=== PATIENT | female | born 1990 | race Caucasian/White ===

== ENCOUNTER → 2018-01-18 10:18 | Outpatient (CLI) | payer BC, SELFPAY ==
[2018-01-18 11:34] LABS: Progesterone Level 3.52 ng/mL (See Comment)
--- OUTSIDE RECORDS SUMMARY | 2018-01-18 12:01 | XMS RPT_ITS ---
:1990 Author Organization OHIP Care Team Providers Name Role Phone Zhane Rodriguez Attending Unavailable Zhane Rodriguez Primary Care Unavailable Carmelo De Leon Attending Unavailable Carmelo De Leon Attending Unavailable Zhane Rodriguez Primary Care Unavailable Alyx Wolfe Attending Unavailable PROBLEMS PROBLEMS DATE TYPE CONDITION / CODE ATTENDING STATUS SOURCE 01/18/2018 Unknown Z31.61 - Sneha Wolfe [facility] [facility] advice using Repository natural family planning / Z31.61(ICD-10) 11/13/2017 Unknown R11.2 - Nausea Carmelo De Leon Active [facility] with vomiting, Community unspecified / Hospital R11.2(ICD-10) Repository 11/13/2017 Unknown R53.83 - Other Carmelo De Leon Active [facility] fatigue / Community R53.83(ICD-10) Hospital Repository 07/01/2017 Unknown PAIN IN RIGHT Zhane Rodriguez Active [place] ANKLE AND JOINTS Community OF RIGHT FOOT / Hospital M25.571(ICD-10) Repository 07/01/2017 Unknown EFFUSION, RIGHT Zhane Rodriguez Active [facility] ANKLE / Community M25.471(ICD-10) Hospital Repository PROCEDURES PROCEDURES No Procedure Records FoundRESULTS RESULTS URGENT CARE VISIT Observed: 11/13/2017 Status: F Source: ERIC REPORT 5:37 PM [facility] REPOSITORY Now [id number] [phone] VISITDate of Service: 11/13/17MR#: [id number] Acct: [id number]: WILEY WHITMAN Rep #: [id number]: 1990 Provider: Carmelo Majano/Sex: 27/F Location: [facility] [place].NOWStatus: SignedIntakeVital Signs11/13/17 Height 5 ft 4 inIntakeVisit Reasons: Nausea/vomitingIs patient in pain?: NoAllergiesNo Known Allergies Allergy ( Unverified 11/13/17 14:43)Medicationsprenatal vitamin,calcium,eclbsyeh-yfvw-rjksv acid tablet 1 tab PO QDAY 11/13/17 [HistoryConfirmed 11/13/17]PFSHMedical HistoryNausea and vomiting (Acute)Abnormal bruising (Acute)Back pain (Acute)Diarrhea (Acute) Fatigue (Acute)Migraines (Acute)Family HistoryOther DiabetesHypertensionSocial HistorySmoking Status: Never smokeralcohol intake: current alcohol intake frequency: a few times a monthHPINausea and vomiting:Details: WILEY WHITMAN, is a 27 F who presents to the office today for complaint of nausea,vomiting and diarrhea for the past 2-3 weeks. He states that she is concerned for possiblepregnancy and is requesting a test at this time. Her last menstrual period was and she states that it was shorter than normal and that she only spotted. She statesthat this is the first time that she has had any irregularities in her cycle. She denies anybirth control or hormone use. She states that since the beginning of that menstrual cycle shehas had the nausea vomiting and diarrhea. She states that the nausea vomiting diarrhea isworse in the morning and then throughout the afternoon it dissipates. She reports that thecycle happens daily. She denies any blood in her vomit or stool. Additionally she reports a12 pound weight gain over the past 3 months and increased tiredness over this time. She deniesfever, chills, sweats. No chest pain or shortness of breath. No other associated symptoms oralleviating/aggravating factors.ROSConstConstitutional: Positive for weight change, decreased energy and fatigue;no fever(s), chills, night sweats, headache(s), weakness or abnormal sleep patternENTENT: No headache(s)RespRespiratory: No coughCardioCardiology: No chest pain at rest, fast heart rate, irregular heart rhythm, lightheadedness orpalpitationsGastroGI: Positive for abdominal pain, diarrhea, nausea/dyspepsia, vomiting and cramping;no belching, bloating, incontinent of stools, Vomiting blood/hematemesis, pain with swallowing,blood in stool or heartburnGUGenitourinary-Female: Positive for light periods, pelvic pain and abnormal periods;no difficulty urinating, painful urination, heavy periods, painful periods or painfulintercourseNeuroNeurology: No headache(s), weakness, dizziness or confusionPsychPsychiatric: No confusion, No abnormal sleep pattern, No lack of enjoyment, Positive foranxietyEndoEndocrine: Positive for fatigue;no flushing, heat intolerance, increased thirst/drinking, increased urination or coldintoleranceExamConstGeneral: cooperative, healthy appearingRespEffort AND Inspection: normal respiratory effortAuscultation: Bilateral: Clear to AuscultationCardioRate: regular rateRhythm: regular rhythmGIInspection: normal to inspectionAuscultation: normal bowel soundsPercussion: normal to percussionPalpation: soft, no guarding, nontender, not rigid, no hepatosplenomegalyGUGeneral: deferredNeuroGeneral: alert, CN's II-XI intact bilaterallyPsychAppearance: grossly normalMood: anxious moodResultsBMSPREGUROffice , Urine Negative Last Edit by Ariane Hankins on 11/13/17 14:58Assessment AND Plan1. Non- intractable vomiting with nausea, unspecified vomiting type R11.2; R11.2StatusAcutePlanPatient advised to follow-up with her PCP in 5-7 days if no better or sooner if worse. Alsoadvised to follow-up with her IMPLEMENTATION COORDINATOR for further evaluation of possible hormonal etiology andperiod irregularity. Patient advised of potential red flags and when appropriate report to theED. Patient verbalized understanding all the above.OrdersOrders:Referrals:Plan DetailOther OrdersOrders:Referrals: CodingLevel of Care CodeOff vis,new,level 4DiagnosesNon-intractable vomiting with nausea, unspecified vomiting type R11.2; R11.2Vomiting type: unspecifiedVomiting Intractability: non-kgkhpflcimr39/19/17 1737 <Electronically signed by Carmelo RIVAS>Date Carmelo De Leon PACosigner Signature: Date (if applicable)CC: Kristin Hall MD HCG TITER QUANT., Collected: 11/13/2017 Status: F Source: [place] 3:46 PM [facility] REPOSITORY TYPE CODE TESTS RESULT OUT OF RANGE REFERENCE UNITS LAB L700.8000 Normal <9 non-preg mIU/mL HCG < 1 QUANT. Performed By: #### L700.8000 ####[facility] [id number] [place], [address] LOWER EXT JOINT ONLY Observed: 06/14/2017 Status: F Source: ERIC (ROUTINE) 1:13 PM [facility] REPOSITORY [facility] [id number] [place], [place] [address]Lcwight 4dLower Ext Joint Only (Routine)MR#: [id number] Acct: [id number]: WILEY WHITMAN Rep #: [id number]: 1990 F 27 From: Jaard Horowitz MDPCP: Zhane Rodriguez Status: REG CLIStudy: Lower Ext Joint Only (Routine) Date of Exam: 06/14/17Exam# [id number] Ordering Dr: Zhane RodriguezSTUDY: MRI RIGHT ANKLE WITHOUT CONTRASTREASON FOR EXAM: Female, 27 years old. Pt rolled right ankle 1 monthago. Continued pain in joint that radiates up leg and swellingTECHNIQUE: Standardized fat and water weighted pulse sequences wereobtained in all 3 orthogonal planes.COMPARISON: None. FINDINGS:There is anterior suprapatellar soft tissue swelling Normal distal tibiaand fibula. There are bone contusions of the talus involving the lateralprocesses and neck of the talus, without fractureNormal posterior tibialis tendon. Normal flexor digitorum longus tendon.Normal flexor hallucis longus tendon. Normal peroneus longus and brevistendons. Normal tibialis anterior tendon. Normal extensor hallucis longustendon. Normal extensor digitorum longus tendons.Normal Achilles tendon and teno-osseous insertion.Normal plantar fascia. Normal plantar calcaneal tubercles. Normalintrinsic muscles of the rearfoot.Normal distal tibiofibular syndesmotic ligamentous complex. There is atear of the anterior talofibular ligament at the fibular insertion (axialT2 series 4 image 18). Normal calcaneofibular and posterior talofibularligaments Normal subtalar ligaments and sinus tarsi. Normal deltoidligamentous complexes. Normal plantar calcaneonavicular (spring) ligament.There is a small tibiotalar joint effusion. Normal talar dome. There is asmall posterior subtalar joint effusion Normal talonavicular articulation.Normal calcaneocuboid articulation. Normal navicular-cuneiformarticulations. ORDER #: [id number] MRI/Lower Ext Joint Only (Routine)IMPRESSION:Anterior talofibular ligament tear.Bone contusion of the talus without fracture.Small joint effusions..Electronically Signed:Jarad Horowitz MD, [id number] at 14:48 EDTTel , Service support , NE: Zhane Rodriguez Title I Director:Signed ALLERGIES ALLERGIES DATE TYPE / CODE NAME / CODE REACTION SEVERITY SOURCE 11/13/2017 Drug No Known Unknown [facility] Allergy/4160 Allergies/F00 Hospital 42902(SNOMED 0552149(RXNOR Repository CT) M) ENCOUNTERS ENCOUNTERS ADMIT/DISCHARGE ACCOUNT ADMITTING ENCOUNTER LOCATION SOURCE NUMBER CLASS 01/18/2018 [id number] Ambulatory [place] Eric 0 [facility] ing:WOBLAB Repository 11/13/2017 [id number] Ambulatory [place] Eric 1 [facility] ing:MTRAD Repository 11/13/2017/ [id number] Ambulatory BMSBuilding:B [place] 7 9 MS.NOW [facility] Repository 06/14/2017 [id number] Ambulatory Eric [place] 6 [facility] ing:MRI Repository PAYERS PAYERS ENCOUNTER GUARANTOR PAYER SUBSCRIBER SOURCE 01/18/2018 Rob [id number] Primary Rob ButlerDOB: [place] [address] Insurance:[facility] [id number] y Number: [facility] [address]Kog: 330 [id number] Repository [phone] () Date:6150-21-20TQ [address] [place] [address]KN: 01/18/2018 Secondary NOT GIVENUNK [place] Insurance:SELF PAY [facility] Number: Effective Repository Date:2018-01-18 11/13/2017 Wiley Bautista Primary Rob ButlerDOB: [place] [address] Insurance:[facility] [id number] y Number: [facility] [address]Pnc: 330 [id number] Repository [phone] () Date:9284-13-84JX [id number] [place] [address]MB: 11/13/2017 Secondary NOT GIVENUNK [place] Insurance:SELF PAY [facility] Number: Effective Repository Date:2017-11-13 11/13/2017 Rob DonohueDieydr7609 Primary NOT GIVENUNK [place] [address] Insurance:[address] y Number: [facility] [address]Fhj: 330 [id number] Repository [phone] () Date:3671-14-22KJ [address], [place] [address]FB: 11/13/2017 Secondary NOT GIVENUNK [place] Insurance:SELF PAY [facility] Number: Effective Repository Date:2017-11-13 06/14/2017 WILEY Bautista Primary ROB ESTRELLAB: Eric [id number] Insurance:[employer] [id number] [facility] y Number: [address] [id number] Repository [phone]: 330) Date:2558-42-75BS [phone] () [id number], [place] [address]CG:
== END ==
PROVIDERS: Visit Provider Obstetrics & Gynecology
DX: Z31.61 Procreative counseling and advice using natural family planning (principal)
CPT/HCPCS: 36415; 84144

== ENCOUNTER → 2018-05-06 11:22 | Outpatient (CLI) | payer BC, SELFPAY ==
--- NOTE | 2018-05-06 11:22 | DT_ITS ---
This patient was seen during an EMR downtime April 29, 2018 - May 06, 2018. This patient may have a combination of paper and electronic documentation or all paper documentation. All documentation is viewable within the e-chart portion of [employer] for each patient visit.
[2018-05-06 14:01] LABS: Hematocrit 38.4 % (37-47); Hemoglobin 12.9 g/dl (12.0-15.0); Mean Corp Hgb Conc 33.6 g/gl (32-36); Mean Corpuscular Hgb 30.1 pg (27.0-32.0); Mean Corpuscular Volume 89.5 fL (81-99); Mean Platelet Vol. 9.8 fl (6.2-12.0); Platelet Count 246 K/mm3 (150-450); RBC Distribution Width CV 12.1 % (11.6-14.6); RBC Distribution Width SD 38.8 fl (35.1-43.9); Red Blood Count 4.29 M/mm3 (4.2-5.4); White Blood Count 6.5 K/mm3 (4.4-11.0)
[2018-05-06 14:03] LABS: Scan Indicated on CBC? Y/N NO
[2018-05-06 14:16] LABS: hCG Titer Quant., Serum < 1 mIU/mL (<9 non-preg)
[2018-05-06 14:35] LABS: Progesterone Level 0.37 ng/mL (See Comment); Rubella IgG 23.8 IU/mL; Vitamin D,25 Hydroxy 24.4 ng/mL (29.95-100.01)
[2018-05-06 15:08] LABS: AST(SGOT) 16 U/L (15-37); Alanine Aminotransfer ALT/SGPT 24 U/L (13-56); Alkaline Phosphatase 60 U/L (45-117); Anion Gap 7 (5-15); BUN 9 mg/dL (7-18); BUN/Creat Ratio 13.4 RATIO (10-20); Bilirubin, Direct 0.09 mg/dL (0.00-0.30); Calcium,Total 8.8 mg/dL (8.5-10.1); Chloride 106 mmol/L (98-107); Creatinine, Serum 0.67 mg/dL (0.55-1.02); EST Glomerular Filtration Rate 111 mL/min (>60); Est Glom Filt Rate - Afr Amer 135 mL/min (>60); Follicle Stimulating Hormone 4.7 mIU/mL; Globulin 3.9 g/dL (2.2-4.2); Glucose 90 mg/dL (74-106); Luteinizing Hormone 5.3 mIU/mL; Phosphorus 2.6 mg/dL (2.5-4.9); Potassium 3.6 mmol/L (3.5-5.1); Prolactin 9.1 ng/mL; Protein, Total 7.9 g/dL (6.4-8.2); Sodium Level 140 mmol/L (136-145); T4 Free Direct 0.84 ng/dL (0.76-1.46); Thyroid Stim Hormone (TSH) 1.28 uIU/mL (0.358-3.74)
[2018-05-10 18:24] LABS: 17-Hydroxyprogesterone 31 ng/dL (.)
== END ==
PROVIDERS: Family Provider Nurse Practitioner; PCP Nurse Practitioner; Visit Provider Obstetrics & Gynecology Reproductive Endocrinology
DX: N91.4 Secondary oligomenorrhea (principal); Z01.83 Encounter for blood typing; Z11.59 Encounter for screening for other viral diseases; E55.9 Vitamin D deficiency, unspecified; R53.83 Other fatigue; Z11.9 Encounter for screening for infectious and parasitic diseases, unspecified
CPT/HCPCS: 36415; 80048; 80076; 82306; 82627; 82670; 83001; 83002; 83498; 84100; 84144; 84146; 84403; 84439; 84443; 84702; 85027; 86762; 86787; 86900; 82626

== ENCOUNTER → 2019-11-21 14:49 | Outpatient (CLI) | payer BC, SELFPAY ==
[2017-11-13 14:56] VITALS: BMI 26.9
[2019-11-21 15:30] LABS: hCG Titer Quant., Serum < 1 mIU/mL (1-3)
[2019-11-21 15:40] LABS: Thyroid Stim Hormone (TSH) 1.04 uIU/mL (0.358-3.74)
== END ==
PROVIDERS: Visit Provider Obstetrics & Gynecology
DX: N92.6 Irregular menstruation, unspecified (principal)
CPT/HCPCS: 36415; 84443; 84702

== ENCOUNTER → 2020-02-09 16:08 | Outpatient (CLI) | payer BC, SELFPAY | PROVIDERS: PCP Nurse Practitioner; Visit Provider Obstetrics & Gynecology | DX: N97.9 Female infertility, unspecified (principal) | CPT/HCPCS: 36415; 84144 ==

== ENCOUNTER → 2020-02-11 14:01 | Outpatient (CLI) | payer BC, SELFPAY ==
[2020-02-11 15:12] LABS: hCG Titer Quant., Serum < 1 mIU/mL (1-3)
== END ==
PROVIDERS: PCP Nurse Practitioner; Visit Provider Obstetrics & Gynecology
DX: N97.0 Female infertility associated with anovulation (principal)
CPT/HCPCS: 36415; 84702

== ENCOUNTER → 2020-05-06 13:19 | Outpatient (CLI) | payer BC, SELFPAY ==
--- NOTE | 2020-05-06 13:24 | BI_ITS ---
MAMMOGRAPHY - BILATERAL DIAGNOSTIC REASON FOR EXAM: Female, 29 years old. Left breast lump. PERTINENT HISTORY: Non-contributory. TECHNIQUE: Digital bilateral breast jamil (3D mammographic acquisition) in the CC and MLO projections. 2-D mediolateral oblique (MLO) and craniocaudad (CC) views of both breasts were obtained. CAD: Full Field Digital Mammography with Computer Added Detection was performed. COMPARISON: None. Baseline examination. FINDINGS: Breast Composition: The breasts are heterogeneously dense, which may obscure small masses. There are no dominant masses or suspicious calcifications. No other significant abnormalities are identified. BI/DIAG MAMM W/CAD, BILAT IMPRESSION: Negative diagnostic mammogram. With the patient''s history of a palpable lump at the 4:00 position of the breast, correlation with ultrasound is recommended. ASSESSMENT CATEGORY: BIRADS Category 0: Incomplete. Need additional imaging evaluation. A letter regarding these results will be sent to the patient by the facility within 30 days. Approximately 10% of breast cancers are not detected by mammography. A normal mammogram should not delay biopsy of a clinically suspicious abnormality. Electronically Signed: Rocky Doe, at 14:19 EDT , Service support ,
--- NOTE | 2020-05-06 13:24 | US_ITS ---
STUDY: ULTRASOUND BREAST - LEFT REASON FOR EXAM: Female, 29 years old. Palpable lump left breast. TECHNIQUE: Axial and longitudinal images of the LEFT breast were performed with a high resolution ultrasound transducer. # OF IMAGES: 16 COMPARISON: Comparison is made with prior mammogram done earlier today. FINDINGS: LEFT Breast: The lateral aspect of the left breast was examined by ultrasound. No sonographic abnormality is seen. US/Breast Limited Unilateral IMPRESSION: No sonographic abnormality is seen. ASSESSMENT CATEGORY: BIRADS Category 1: Negative. A letter regarding these results will be sent to the patient by the facility within 30 days. Electronically Signed: Rocky Doe, at 14:42 EDT , Service support ,
== END ==
PROVIDERS: PCP Nurse Practitioner; Referring Provider Obstetrics & Gynecology; Visit Provider Obstetrics & Gynecology
DX: N63.20 Unspecified lump in the left breast, unspecified quadrant (principal)
CPT/HCPCS: 76642; 77062; 77066; G0279

== ENCOUNTER → 2020-06-30 09:26 | Outpatient (CLI) | payer BC, SELFPAY ==
--- NOTE | 2020-06-30 09:32 | US_ITS ---
STUDY: ABDOMINAL ULTRASOUND - RIGHT UPPER QUADRANT REASON FOR VISIT: Female, 30 years old NAUSEA, DIARRHEA x 2-3 months TECHNIQUE: Ultrasound evaluation of the right upper quadrant was performed with real-time and static baker-scale imaging. TECHNICAL QUALITY: Adequate. COMPARISON: None. FINDINGS: Liver: The liver measures 15.6 cm. There is normal echogenicity of the liver. The bile ducts are within normal limits. There is hepatic color flow. The direction of portal flow is hepatopetal. There is no demonstrated mass lesion. Gallbladder: Normal distended gallbladder. The gallbladder wall measures 2.0 mm. There is a negative sonographic Larios''s sign. There is no pericholecystic fluid. There are no gallstones. Common Bile Duct (C.B.D.): The common bile duct measures 4.0 mm. Pancreas: Normal size of the head, body of the pancreas. The tail portion is obscured due to overlying bowel gas. There is normal echogenicity of the pancreas. There is no demonstrated pancreatic mass or cyst. Right Kidney: Normal size of the right kidney. The right kidney measures 10.8 cm x 3.9 cm x 3.8 cm. Normal renal cortex. The right cortex measures 1.1 cm. There is no demonstrated renal mass or cyst. There is no right hydronephrosis. US/Gallbladder IMPRESSION: Normal right upper quadrant ultrasound examination. Electronically Signed: Rocky Doe, at 13:16 EDT , Service support ,
== END ==
PROVIDERS: PCP Nurse Practitioner; Referring Provider Nurse Practitioner; Visit Provider Nurse Practitioner
DX: R11.0 Nausea (principal)
CPT/HCPCS: 76705

== ENCOUNTER → 2020-09-01 15:17 | Outpatient (CLI) | payer BC, SELFPAY ==
[2017-11-13 14:56] VITALS: BMI 26.9
[2020-09-01 18:34] LABS: CRP < 2.90 mg/L (0.0-3.0)
[2020-09-03 20:07] LABS: Endomysial Antibody IgA Negative (Negative)
[2020-09-03 20:29] LABS: Immunoglobulin A 147 mg/dL (87-352); t-Transglutaminase IgA <2 U/mL (0-3)
== END ==
PROVIDERS: PCP Nurse Practitioner; Referring Provider Internal Medicine Gastroenterology; Visit Provider Internal Medicine Gastroenterology
DX: R19.7 Diarrhea, unspecified (principal)
CPT/HCPCS: 36415; 82784; 83516; 86140; 86255

== ENCOUNTER → 2020-10-01 15:14 | Outpatient (CLI) | payer BC, SELFPAY ==
[2017-11-13 14:56] VITALS: BMI 26.9
--- NOTE | 2020-10-01 | COLBX_PTH ---
PATIENT: WILEY WHITMAN [facility]: [facility] U#:[id number] AGE/SX: 35/F ROOM: RE10/01/[address]: Dr. Bean Castillo MD : 1990 BED: DIS: SPEC #: [id number] RECD: 10/01/20 15:03 STATUS: CLARISSA RAYMUNDO #: [id number] JAMI: 10/01/20 00:[address]: Bean Castillo DEPT: SURGICAL PATHOLOGY RECD BY: Chata Marte ENTERED: 10/04/20 08:31 SP TYPE: COLON BX OTHR DR: Zhane Rodriguez, LEAD MECHANIC-C [facility] Tissues: A - Ileum, NOS B - COLON BIOPSY Procedures: Surgery Specimen Level IV HEADER OPERATION: Colonoscopy with biopsies PRE-OP DIAGNOSIS: Diarrhea TISSUE SUBMITTED: A - Terminal ileum biopsies, rule out Crohn's, B - Right and left colon biopsies, rule out microscopic colitis MICROSCOPIC DIAGNOSIS A. Terminal ileum, biopsy: Fragments of small intestinal mucosa, no pathologic diagnosis. B. Right and left colon, biopsy: Fragments of colonic mucosa, no pathologic diagnosis. NIKA:cammie 10/05/20 MICROSCOPIC DESCRIPTION Slides are reviewed. GROSS DESCRIPTION A - Received in fixative is one container labeled with the patient's name and designated terminal ileum. The specimen consists of multiple irregular fragments of light carballo soft tissue that in aggregate measure 1.2 x 0.5 x 0.1 cm. The specimen is totally submitted in one cassette. B - Received in fixative is one container labeled with the patient's name and designated right and left colon biopsy. The specimen consists of multiple irregular fragments of light carballo soft tissue that in aggregate measure 1.5 x 0.7 x 0.1 cm. The specimen is totally submitted in one cassette. / NIKA:cammie 10/04/20 TC:4 CPT: 96375 x2
== END ==
PROVIDERS: PCP Nurse Practitioner; Visit Provider Internal Medicine Gastroenterology
DX: R19.7 Diarrhea, unspecified (principal)
CPT/HCPCS: 88305

== ENCOUNTER 2021-05-19 16:20 | Outpatient (CLI) | payer BC, SELFPAY ==
[2021-05-19] VITALS (9 sets, daily range): BP systolic 118–133; BP diastolic 73–90; PULSE 88–101; TEMP 36.9; O2SAT 98; BMI 30.9
[2021-05-19 18:03] LABS: Hematocrit 33.4 % (37-47); Hemoglobin 11.1 g/dL (12.0-15.0); Mean Corp Hgb Conc 33.2 g/dL (32-36); Mean Corpuscular Hgb 30.7 pg (27.0-32.0); Mean Corpuscular Volume 92.3 fL (81-99); Mean Platelet Vol. 10.1 fl (6.2-12.0); Platelet Count 237 K/mm3 (150-450); RBC Distribution Width CV 13.1 % (11.6-14.6); RBC Distribution Width SD 44.2 fl (35.1-43.9); Red Blood Count 3.62 M/mm3 (4.2-5.4); White Blood Count 16.3 K/mm3 (4.4-11.0)
[2021-05-19 18:13] LABS: Creatinine, Urine (random) < 13.00 mg/dL (NO RANGE EST.); Protein, Urine (Random) < 6.0 mg/dL (<11.9)
[2021-05-19 18:17] LABS: ALB/GLOB Ratio 0.7 RATIO (0.9-2.4); AST(SGOT) 16 U/L (15-37); Alanine Aminotransfer ALT/SGPT 20 U/L (13-56); Albumin, Serum 2.9 g/dL (3.2-5.0); Alkaline Phosphatase 98 U/L (45-117); Anion Gap 6 (5-15); BUN 8 mg/dL (7-18); BUN/Creat Ratio 19.3 RATIO (10-20); Chloride 107 mmol/L (98-107); Creatinine, Serum 0.42 mg/dL (0.55-1.02); EST Glomerular Filtration Rate 190 mL/min (>60); Est Glom Filt Rate - Afr Amer 229 mL/min (>60); Estimated Creatinine Clearance 160.54 ml/min; Globulin 4.2 g/dL (2.2-4.2); Glucose 81 mg/dL (74-106); Potassium 3.4 mmol/L (3.5-5.1); Protein, Total 7.1 g/dL (6.4-8.2); Sodium Level 136 mmol/L (136-145)
--- NOTE | 2021-06-05 17:17 | OB.TRI.PN ---
Progress Notes Date of Service: 05/19/21 Progress Note: Presented to labor and delivery with elevated blood pressure. No headache or visual changes. Laboratory Studies: Laboratory Tests 05/19/21 05/19/21 05/19/21 Range/Units 17:30 17:30 17:30 WBC (4.4-11.0) K/mm3 RBC (4.2-5.4) M/mm3 Hgb (12.0-15.0) g/dL Hct (37-47) % MCV (81-99) fL MCH (27.0-32.0) pg MCHC (32-36) g/dL RDW Std Deviation (35.1-43.9) fl RDW Coeff of Bella (11.6-14.6) % Plt Count (150-450) K/mm3 MPV (6.2-12.0) fl Sodium 136 (136-145) mmol/L Potassium 3.4 L (3.5-5.1) mmol/L Chloride 107 (98-107) mmol/L Carbon Dioxide 23.0 (21.0-32.0) mmol/L Anion Gap 6 (5-15) BUN 8 (7-18) mg/dL Creatinine 0.42 L Cancelled Estim Creat Clear Calc 160.54 ml/min Est GFR (MDRD) Af Amer 229 Cancelled Est GFR (MDRD) Non-Af 190 Cancelled BUN/Creatinine Ratio 19.3 (10-20) RATIO Glucose 81 (74-106) mg/dL Uric Acid 4.0 (2.6-6.0) mg/dL Calcium 9.0 (8.5-10.1) mg/dL Total Bilirubin 0.20 (0.20-1.00) mg/dL AST 16 Cancelled ALT 20 Cancelled Alkaline Phosphatase 98 (45-117) U/L Total Protein 7.1 (6.4-8.2) g/dL Albumin 2.9 L (3.2-5.0) g/dL Globulin 4.2 (2.2-4.2) g/dL Albumin/Globulin Ratio 0.7 L (0.9-2.4) RATIO U Random Total Protein < 6.0 (<11.9) mg/dL Urine Creatinine < 13.00 (NO RANGE EST.) mg/dL Protein/Creatinin Ratio TNP 05/19/21 Range/Units 17:30 WBC 16.3 H (4.4-11.0) K/mm3 RBC 3.62 L (4.2-5.4) M/mm3 Hgb 11.1 L (12.0-15.0) g/dL Hct 33.4 L (37-47) % MCV 92.3 (81-99) fL MCH 30.7 (27.0-32.0) pg MCHC 33.2 (32-36) g/dL RDW Std Deviation 44.2 H (35.1-43.9) fl RDW Coeff of Bella 13.1 (11.6-14.6) % Plt Count 237 (150-450) K/mm3 MPV 10.1 (6.2-12.0) fl Sodium (136-145) mmol/L Potassium (3.5-5.1) mmol/L Chloride (98-107) mmol/L Carbon Dioxide (21.0-32.0) mmol/L Anion Gap (5-15) BUN (7-18) mg/dL Creatinine Estim Creat Clear Calc ml/min Est GFR (MDRD) Af Amer Est GFR (MDRD) Non-Af BUN/Creatinine Ratio (10-20) RATIO Glucose (74-106) mg/dL Uric Acid (2.6-6.0) mg/dL Calcium (8.5-10.1) mg/dL Total Bilirubin (0.20-1.00) mg/dL AST ALT Alkaline Phosphatase (45-117) U/L Total Protein (6.4-8.2) g/dL Albumin (3.2-5.0) g/dL Globulin (2.2-4.2) g/dL Albumin/Globulin Ratio (0.9-2.4) RATIO U Random Total Protein (<11.9) mg/dL Urine Creatinine (NO RANGE EST.) mg/dL Protein/Creatinin Ratio Assessment & Plan (1) Elevated blood pressure affecting , antepartum: PLAN: 1) Asymptomatic, labs normal 2) D/C home preeclampsia symptoms
== END 2021-05-19 18:30 | disposition home or self-care (01) ==
LOC: WPOUT 16:23 → OBT 16:24
PROVIDERS: PCP Nurse Practitioner; Visit Provider Advanced Practice Midwife
DX: O26.899 Other specified pregnancy related conditions, unspecified trimester (principal); R03.0 Elevated blood-pressure reading, without diagnosis of hypertension; Z3A.00 Weeks of gestation of pregnancy not specified
CPT/HCPCS: 36415; 59025; 59050; 80053; 82570; 84156; 84550; 85027; 99218; G0378

== ENCOUNTER 2021-06-14 15:45 | Outpatient (CLI) | payer BC, SELFPAY ==
[2021-05-19 16:41] VITALS: BMI 30.9
[2021-06-14] VITALS (7 sets, daily range): BP systolic 126–134; BP diastolic 89–94; PULSE 84–99; TEMP 36.9; BMI 31.4
[2021-06-14 16:42] LABS: Hematocrit 32.8 % (37-47); Hemoglobin 11.1 g/dL (12.0-15.0); Mean Corp Hgb Conc 33.8 g/dL (32-36); Mean Corpuscular Hgb 30.7 pg (27.0-32.0); Mean Corpuscular Volume 90.9 fL (81-99); Platelet Count 227 K/mm3 (150-450); RBC Distribution Width SD 42.5 fl (35.1-43.9); Red Blood Count 3.61 M/mm3 (4.2-5.4); White Blood Count 13.8 K/mm3 (4.4-11.0)
--- NOTE | 2021-06-14 16:54 | OB.TRI.PN ---
Progress Notes Date of Service: 06/14/21 Progress Note: 31 year old female at 32 weeks presents to labor and delivery with elevated blood pressure 150/90 at work. Asymptomatic but work partners were nervous because her feet were swelling. Has intermittent headache but resolves without intervention, no headache today. Denies any scotoma or visual changes. Denies any chest pain, shortness of breath, right upper abdominal quadrant pain, leakage of fluid, vaginal bleeding, or dysuria. Denies any contractions. O: Blood pressure mild range at this time, no blood pressure 140/90 or higher FHT 140, moderate variability, reactive TOCO: Infrequent, mild, patient unable to feel contractions. Laboratory Studies: Laboratory Tests 06/14/21 Range/Units 16:25 WBC 13.8 H (4.4-11.0) K/mm3 RBC 3.61 L (4.2-5.4) M/mm3 Hgb 11.1 L (12.0-15.0) g/dL Hct 32.8 L (37-47) % MCV 90.9 (81-99) fL MCH 30.7 (27.0-32.0) pg MCHC 33.8 (32-36) g/dL RDW Std Deviation 42.5 (35.1-43.9) fl RDW Coeff of Bella 13.0 (11.6-14.6) % Plt Count 227 (150-450) K/mm3 MPV 10.0 (6.2-12.0) fl Assessment & Plan (1) Elevated blood pressure affecting , antepartum: PLAN: 1) Reactive NST 2) Preeclampsia labs-CMP, CBC, uric acid and urine P/C ratio normal 3) BP mildly elevated. Reviewed preeclampsia symptoms and when to call 4) Appointment tomorrow with and to get blood pressure cuff in office. 5) D/C home
[2021-06-14 17:12] LABS: Creatinine, Urine (random) < 13.00 mg/dL (NO RANGE EST.); Protein, Urine (Random) < 6.0 mg/dL (<11.9)
[2021-06-14 17:13] LABS: ALB/GLOB Ratio 0.7 RATIO (0.9-2.4); AST(SGOT) 16 U/L (15-37); Alanine Aminotransfer ALT/SGPT 21 U/L (13-56); Albumin, Serum 2.8 g/dL (3.2-5.0); Alkaline Phosphatase 118 U/L (45-117); Anion Gap 6 (5-15); BUN 7 mg/dL (7-18); BUN/Creat Ratio 15.1 RATIO (10-20); Calcium,Total 8.5 mg/dL (8.5-10.1); Chloride 107 mmol/L (98-107); Creatinine, Serum 0.46 mg/dL (0.55-1.02); EST Glomerular Filtration Rate 166 mL/min (>60); Est Glom Filt Rate - Afr Amer 201 mL/min (>60); Estimated Creatinine Clearance 146.58 ml/min; Globulin 4.2 g/dL (2.2-4.2); Glucose 91 mg/dL (74-106); Potassium 3.9 mmol/L (3.5-5.1); Sodium Level 135 mmol/L (136-145); Uric Acid 4.4 mg/dL (2.6-6.0)
== END 2021-06-14 17:40 | disposition home or self-care (01) ==
LOC: WPOUT 15:57 → WP 15:58
PROVIDERS: PCP Nurse Practitioner; Referring Provider Advanced Practice Midwife; Visit Provider Advanced Practice Midwife
DX: O26.893 Other specified pregnancy related conditions, third trimester (principal); R03.0 Elevated blood-pressure reading, without diagnosis of hypertension; Z3A.32 32 weeks gestation of pregnancy
CPT/HCPCS: 36415; 59025; 59050; 80053; 82570; 84156; 84550; 85027; 99218; G0378

== ENCOUNTER 2021-07-07 08:05 | Inpatient (IN) | payer BC, SELFPAY ==
[2021-06-14 16:39] VITALS: BMI 31.4
--- NOTE | 2021-07-06 15:12 | HP.PCM_ITS ---
History and Physical Date of Admission: 07/07/21 HPI: The patient is a 31 year old female presenting for pre-operative visit. She is scheduled for , for breech, gestational hypertension and new placental infarcts on 07/07/2021. This plan was recommended by maternal- medicine on 07/06/2021. Procedure discussed along with risks, benefits and complications. Other alternatives discussed for management. ? PAST MEDICAL HISTORY PAST MEDICAL HISTORY Diagnosis Date ? 2009 ? Right spastic hemiparesis (HCC) 04/06/2021 ? Schizencephaly (HCC) ? ? 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 ? PAST SURGICAL HISTORY PAST SURGICAL HISTORY Procedure Laterality Date ? D&C, DIAG AND/OR THERAPEUTIC ? CURRENT MEDICATIONS Current Outpatient Medications Medication Sig Dispense Refill ? labetalol (TRANDATE) 100 mg tablet Take 1 tablet by mouth twice daily. 60 tablet 1 ? acyclovir (ZOVIRAX) 400 mg tablet Take 1 tablet by mouth three times daily. 90 tablet 1 ? PNV no.95/ferrous fum/folic ac ( ORAL) Take by mouth. ? ? ? No current facility-administered medications for this visit. ? ? ALLERGIES: Patient has no known allergies. ? PERSONAL HISTORY: SOCIAL HISTORY Social History ? Tobacco Use ? Smoking status: Former Smoker ? Smokeless tobacco: Never Used Vaping Use ? Vaping Use: Never used Substance Use Topics ? Alcohol use: Not Currently ? Drug use: Never ? FAMILY HISTORY: FAMILY HISTORY FAMILY HISTORY Problem Relation Age of Onset ? Hypertension Mother ? ? No Known Problems Father ? ? ADD/ADHD Sister ? ? Diabetes Maternal Grandmother ? ? Hypertension Maternal Grandmother ? ? COPD Paternal Grandmother ? ? No Known Problems Paternal Grandfather ? ? Hypertension Maternal Aunt ? ? No Known Problems Sister ? ? No Known Problems Sister ? ? ADD/ADHD Sister ? ? ? REVIEW OF SYMPTOMS: GENERAL: denies fevers or chills ENDOCRINOLOGY: has not been on steroids Cardiology : denies palpitations or chest pain Respiratory: denies SOB or cough Hematology: denies history of prolonged bleeding or easy bruising or VTE Allergy: Denies history of personal or family history of allergy to anesthesia ? PHYSICAL EXAMINATION: ? VITALS: Blood pressure 126/80, weight 178 lb (80.7 kg), last menstrual period 10/24/2020. ? GENERAL: The patient is well nourished, well hydrated in no acute distress. , The patient is oriented to time, place, and person. NECK: Supple. No lynphadenopathy, normal thyroid, no thyromegaly. LUNGS: Clear to auscultation bilaterally. no wheezes, rhonchi or rales HEART: Regular rate and rhythm, Normal heart sounds and No murmurs or gallops abd- soft, nontender, gravid ext- 1+ edema, 2+ DTRs, no clonus ? ? IMPRESSION: 31-year-old 3 para 0-0-2-0 at 36 weeks on 07/06/2021 for primary section due to breech, gestational hypertension and new placental infarcts. ? PLAN: The risks/benefits/alternatives and personal involved for the planned c- section were reviewed with the patient. Her questions were answered to her satisfaction and she desires to proceed. Consent was signed. I reviewed with her postop instructions and expectations. ? ? ? I have reviewed and updated past medical and surgical history, medications and allergies Assessment & Plan Assessment/Plan (1) Gestational hypertension, third trimester: (2) 36 weeks gestation of : (3) Breech presentation, antepartum: (4) Supervision of other high risk pregnancies, third trimester: (5) Placental infarct affecting management of mother in third trimester:
[2021-07-07] VITALS (17 sets, daily range): BP systolic 116–138; BP diastolic 72–110; PULSE 67–100; RESP 12–19; TEMP 36.1–36.7; O2SAT 96–99; BMI 28.7
[2021-07-07] MEDS: Lactated Ringers 1,000 ML 999 ML IV (08:35)
[2021-07-07 08:49] LABS: Absolute Lymphocyte Count 2.08 X10^3/uL (0.83-4.51); Absolute Neutrophil Count 8.8 X10^3/uL (2.0-7.7); Basophil# 0.03 X10^3/uL; Basophil% 0.2 % (0-1); Eosinophil# 0.25 X10^3/uL; Eosinophils% 2.1 % (0-5); Hematocrit 33.8 % (37-47); Hemoglobin 11.2 g/dL (12.0-15.0); Lymphocyte # 2.08 X10^3/ul (0.83-4.51); Lymphocyte % 17.1 % (19-41); Mean Corp Hgb Conc 33.1 g/dL (32-36); Mean Corpuscular Hgb 30.8 pg (27.0-32.0); Mean Corpuscular Volume 92.9 fL (81-99); Monocyte# 0.84 X10^3/uL; Monocyte% 6.9 % (0-10); NRBC Flagged by Analyzer 0 % (0-5); Neutrophil # 8.82 X10^3/uL (2.7-7.7); Neutrophil % 72.8 % (47-70); Platelet Count 232 K/mm3 (150-450); RBC Distribution Width CV 13.1 % (11.6-14.6); RBC Distribution Width SD 44.4 fl (35.1-43.9); Red Blood Count 3.64 M/mm3 (4.2-5.4); White Blood Count 12.1 K/mm3 (4.4-11.0)
[2021-07-07] MEDS: Lactated Ringers 1,000 ML 150 ML IV (09:45)
[2021-07-07] MEDS: Acetaminophen 500 MG Tablet 1000 MG PO ×3 (09:45→23:08)
[2021-07-07] MEDS: Sodium Citrate/Citric Acid 30 ML UDC PO (11:02)
[2021-07-07] MEDS: Cefazolin 2 GM in 0.9% Normal Saline 100 ML IV (11:36)
--- NOTE | 2021-07-07 12:05 | PLAC_PTH ---
PATIENT: WILEY WHITMAN LOC: [facility] U#:[id number] AGE/SX: 31/F ROOM: WP009 RE07/07/[address]: Dr. Ronna Fajardo MD : 1990 BED: 1 DIS: 07/11/2021 SPEC #: [id number] RECD: 07/07/21 13:25 STATUS: CLARISSA RAYMUNDO #: [id number] JAMI: 07/07/21 12:[address]: Ronna Fajardo DEPT: SURGICAL PATHOLOGY RECD BY: Queta Suarez ENTERED: 07/08/21 08:36 SP TYPE: PLACENTA OTHR DR: Zhane Rodriguez, FURNITURE INSPECTOR-C Tissues: Placenta, NOS Procedures: Surgery Specimen Level V HEADER OPERATION: Primary section PRE-OP DIAGNOSIS: Labor TISSUE SUBMITTED: Placenta MICROSCOPIC DIAGNOSIS Placenta: Placental disc - third trimester placenta (468 gm). Focal area of intraparenchymal hemorrhage (1 cm in greatest dimension). Membranes - no pathologic diagnosis. Umbilical cord - three blood vessels and no pathologic diagnosis. SJ:cammie 07/11/2021 MICROSCOPIC DESCRIPTION Slides are reviewed. GROSS DESCRIPTION SPECIMEN: PLACENTA / CLINICAL INFORMATION: A. Weight: 2.535 kg B. Gestational Age: 36 weeks C. Sex: Female PLACENTAL WEIGHT (POST FIXATION): 468 gm PLACENTAL DIMENSIONS: 17 x 17 x 3 cm PLACENTAL SHAPE: Usual ovoid PLACENTAL WEIGHT FOR GESTATIONAL AGE: Within 10-99th percentile MEMBRANES - Present A. Insertion: Marginal B. Site of rupture from edge: At edge of placental disc C. Color of membrane: Carballo-baker D. Abnormalities: None UMBILICAL CORD - Present A. Color: Carballo-baker B. Insertion: Eccentric C. Length: 43 cm D. Diameter: 1.5 cm E. Number of vessels: Three F. Abnormalities: None PLACENTAL DISC - Present A. Color of surface: Carballo-baker B. surface abnormalities: None C. Maternal cotyledons: Intact with minimal tears D. Attached retro placental clot: No clot E. Cut surface: Dark red and spongy F. Lesions: There is one white-carballo lesion measuring 1 cm G. Separate clot: Absent SECTIONS SUBMITTED: 1. Umbilical cord ( end notched) 2. Umbilical cord, placental end 3. Membrane roll 4. Placental disc, and maternal surfaces, lesion 5. Placental disc, and maternal surfaces 6. Placental disc, and maternal surfaces AM:cammie 07/08/21 TC:5 CPT: 55712
--- NOTE | 2021-07-07 12:36 | OP.PCM_ITS ---
Maternal Data Information Final ROSY: 08/04/21 Gestational age: 36 0/7 Details Operative Information Date of Procedure: 07/07/21 Pre-Operative Diagnosis: 36 weeks, gestational hypertension, placental infarcts, kim breech Post-Operative Diagnosis: same Classification: Scheduled Procedure Type: low transverse superintendent warehouse #1: kelby Treviño Type of Anesthesia: Spinal Anesthesiologist: Wilma Riojas Antibiotic Given: Ancef 2 grams IV x1 Estimated Blood Loss: 800 Fluids Replaced: 1100 Procedure Start Time: 12:02 Procedure Stop Time: 12:30 Time of Delivery: 12:05 Findings Description of Procedure: The patient was taken to the operating room. She was prepped and draped in the dorsal supine position with a leftward tilt. A Pfannenstiel skin incision was made approximately 2 cm above the symphysis pubis and carried through to underlying layer fascia with the scalpel. The fascia was incised incised in the midline and extended laterally with the Rodriguez scissors. The fascia was dissected off the rectus muscles with blunt and sharp dissection. The rectus muscles were in the midline and the peritoneum was entered bluntly. The peritoneal incision was stretched and the bladder blade was placed. The uterine incision was made in a low transverse fashion with the scalpel and extended superiorly and inferiorly with blunt dissection. The amniotic membranes were ruptured bluntly and clear amniotic fluid returned. The infant's buttocks were brought to the incision and the baby was turned back up. The legs were swept out individually. The arms were then swept out. A towel was placed around the baby and the baby's head delivered easily with just fundal pressure. A loose nuchal cord x1 was easily reduced. T The mouth and nares were bulb suctioned. The cord was clamped and cut as the was stimulated. Cord clamping was delayed. The infant was handed off to the waiting nursing staff. The placenta was delivered with fundal massage and gentle traction in the standard fashion. The uterus was exteriorized and cleared of all clots and debris. The cervix was dilated with a ring forcep. The uterine incision was closed with #1 Vicryl in a running locked fashion. A second layer of the same suture was used in an imbricating fashion. The incision was examined and was found to be hemostatic. The uterus was placed back into the peritoneal cavity and hemostasis was again confirmed. The rectus muscles were examined and any bleeding was Bovie cauterized. The parietal peritoneum and rectus muscles were closed en bloc with an 0 Vicryl running suture. The surgical teams outer gloves were then changed. The rectus fascia was examined and any bleeding was Bovie cauterized and the rectus fascia was closed with 1 Vicryl suture in a running standard fashion. The subcutaneous tissue was examining and any bleeding was Bovie cauterized. The subcutaneous tissue was reapproximated with 3-0 Vicryl suture. The skin was closed in a subcuticular fashion. I performed the remainder of the procedure with assistance. The horticultural nursery assistant provided tissue manipulation, assistance with delivery, and retraction. All sponge, lap, and needle counts were correct. The patient was taken to her room for recovery in a stable condition. Presentation: Positive for Kim Breech Amniotic Membrane Rupture Type: Artificial Amniotic Fluid Description: Clear Placental Delivery Description: Spontaneous Placenta Disposition: [facility] Specimen(s) Sent to Pathology: placenta Cord Vessel Description: 3 Vessels Cord Entanglement: Around neck x 1, loose Nuchal Cord Compression: Without compression A Gender: Female (Illeanna, 5lb 9 oz) (1 minute): 8 (5 minute): 9 Delayed Cord Clamping: Yes Complications Complications: none
--- NOTE | 2021-07-07 12:49 | HP.PCM.NUR_ITS ---
Subjective Subjective: 2535grams for this 36 week AGA BG delivered by primary C/S secondary to an ultrasound revealing infarcts a week after none had been seen by MFM. Mother is a 31year old ->1 O neg ( rhogam received) ( baby )HepBsag neg, RI, RPR NR, GC neg, Chl neg, HIV NR, GBS neg, HepCab neg. Mother with history of HSV with one known outbreak on valtrex ( secondary to abuse and unfaithful relationship). Maternal Schizencephaly, seen by genetics who stated that not likely genetic in nature, Maternal hx of SAB with trisomy 21 which is the initial reason for MFM recommendation. Maternal subsequent anxiety and depression, which was hightened by of mothers best friend. Mother also is a positive carrier of non-syndromic hearing loss. Maternal HTN noted over the last 4 weeks and on labetelol. Mother plans to breastfeed. PCP: [place] Objective Objective Data: 07/07/21 09:19 Temperature 97.6 F L Temperature Source Temporal Pulse Rate 98 Respiratory Rate 18 Blood Pressure 128/95 H Blood Pressure Mean 106 Blood Pressure Source Monitor Blood Pressure Position Semi-Fowlers Blood Pressure Location Right Arm Pulse Ox 99 Oxygen Delivery Method Room Air Weight: 80.2 kg Vital Signs Temp Pulse Resp BP Pulse Ox 07/07/21 09:19 97.6 F L 98 18 128/95 H 99 Lab tests last 48H 07/07/21 07/07/21 07/07/21 08:35 08:35 08:35 WBC 12.1 H RBC 3.64 L Hgb 11.2 L Hct 33.8 L MCV 92.9 MCH 30.8 MCHC 33.1 RDW Std Deviation 44.4 H RDW Coeff of Bella 13.1 Plt Count 232 MPV 10.0 Immature Gran % (Auto) 0.900 Neut % (Auto) 72.8 H Lymph % (Auto) 17.1 L Dougherty % (Auto) 6.9 Eos % (Auto) 2.1 Baso % (Auto) 0.2 Absolute Neuts (auto) 8.8 H Absolute Lymphs (auto) 2.08 Nucleated RBC % 0 Blood Type O NEGATIVE Antibody Screen TNP NEGATIVE Micro - Preliminary and Final Results 07/07/21 09:35 SARS-CoV-2 Antigen (Rapid) - Final Mucosa - Nasopharyngeal Vital Signs Vital Signs Vital Signs: 07/07/21 09:19 Temperature 97.6 F L Temperature Source Temporal Pulse Rate 98 Respiratory Rate 18 Blood Pressure 128/95 H Blood Pressure Mean 106 Blood Pressure Source Monitor Blood Pressure Position Semi-Fowlers Blood Pressure Location Right Arm Pulse Ox 99 Oxygen Delivery Method Room Air Weight Weight: 80.2 kg Body Mass Index (BMI) 28.7 General Weight: 80.2 kg
[2021-07-07] MEDS: Oxytocin 30 units/NS 500 ml 30 UNITS/500 ML IV.SOLN 167 UNITS IV (13:00)
[2021-07-07] MEDS: Ketorolac 30 MG/ML Syringe IV ×2 (13:22→20:03)
--- NOTE | 2021-07-07 14:55 | NURSING ---
Report given to Stacie Dumont RN who will assume care of this patient at this time.
[2021-07-07] MEDS: Nalbuphine 10 MG/ML Ampul 5 MG IV (16:28)
[2021-07-07] MEDS: Lactated Ringers 1,000 ML 100 ML IV (16:29)
[2021-07-08] VITALS: PULSE 95; RESP 18; O2SAT 98
[2021-07-08] MEDS: Ketorolac 30 MG/ML Syringe IV ×2 (01:27→06:31)
[2021-07-08] MEDS: 0.9% Saline Lock 10 ML Syringe IV ×2 (01:27→06:31)
[2021-07-08 04:50] VITALS: BP 122/75; PULSE 83; RESP 18; TEMP 36.1; O2SAT 95
[2021-07-08] MEDS: Acetaminophen 500 MG Tablet 1000 MG PO ×4 (04:56→23:39)
[2021-07-08 05:58] LABS: Hematocrit 27.6 % (37-47); Hemoglobin 9.1 g/dL (12.0-15.0); Mean Corpuscular Volume 93.9 fL (81-99); Mean Platelet Vol. 10.1 fl (6.2-12.0); Platelet Count 207 K/mm3 (150-450); RBC Distribution Width CV 13.2 % (11.6-14.6); RBC Distribution Width SD 44.7 fl (35.1-43.9); Red Blood Count 2.94 M/mm3 (4.2-5.4); White Blood Count 18.7 K/mm3 (4.4-11.0)
[2021-07-08 07:51] VITALS: BP 127/82; PULSE 89; RESP 12; TEMP 36.8
--- NOTE | 2021-07-08 08:11 | PCM.PN.OB ---
Subjective Subjective She is doing well. Pain well controlled. Denies chest pain, shortness of breath, leg pain. Tolerating regular diet without nausea or vomiting. Ambulating and voiding without difficulty. Lochia normal. Objective Data Objective Data Vital Signs: Vital Signs Temp Pulse Resp BP Pulse Ox 98.2 F 89 12 127/82 H 95 07/08/21 07:51 07/08/21 07:51 07/08/21 07:51 07/08/21 07:51 07/08/21 04:50 Oxygen Delivery Method Room Air Weight: 176 lb 12.972 oz Body Mass Index (BMI) 28.7 Intake & Output: Intake and Output for Last 24 Hours 07/06/21 07/07/21 07/08/21 23:59 23:59 23:59 Intake Total 3910 / 4410 1916.67 / 1916.67 Output Total 1950 / 2350 2200 / 2200 Balance 1959 / 2059 -283.33 / -283.33 Lab / Micro Data Result Diagrams: 07/08/21 05:00 Labs: Laboratory Results - last 24 hr 07/07/21 08:35: WBC 12.1 H, RBC 3.64 L, Hgb 11.2 L, Hct 33.8 L, MCV 92.9, MCH 30.8, MCHC 33.1, RDW Std Deviation 44.4 H, RDW Coeff of Bella 13.1, Plt Count 232, MPV 10.0, Immature Gran % (Auto) 0.900, Neut % (Auto) 72.8 H, Lymph % (Auto) 17.1 L, Glasscock % (Auto) 6.9, Eos % (Auto) 2.1, Baso % (Auto) 0.2, Absolute Neuts (auto) 8.8 H, Absolute Lymphs (auto) 2.08, Nucleated RBC % 0 07/07/21 08:35: Blood Type O NEGATIVE, Antibody Screen TNP 07/07/21 08:35: Antibody Screen NEGATIVE 07/08/21 05:00: WBC 18.7 H, RBC 2.94 L, Hgb 9.1 L, Hct 27.6 L, MCV 93.9, MCH 31.0, MCHC 33.0, RDW Std Deviation 44.7 H, RDW Coeff of Bella 13.2, Plt Count 207, MPV 10.1 Micro: Microbiology 07/07/21 09:35 Mucosa - Nasopharyngeal SARS-CoV-2 Antigen (Rapid) - Final Physical Exam Const alert and no apparent distress General Appearance: comfortable Resp normal respiratory effort GI soft to palpation, non-tender and non-distended Uterus Palpation: uterus fundus firm Assessment & Plan (1) S/P section: PLAN: Patient is postoperative day 1 from a primary section for breech presentation. She is doing well and pain is well controlled. Disposition: Routine postop care. Anticipate discharge home tomorrow.
[2021-07-08 11:48] VITALS: BP 137/95; PULSE 84; RESP 14; TEMP 36.2
[2021-07-08] MEDS: Senna/Docusate Sodium 1 Tablet PO (11:50)
[2021-07-08] MEDS: Ibuprofen 600 MG Tablet PO ×2 (14:10→19:01)
[2021-07-08 21:16] VITALS: BP 136/83; PULSE 87; RESP 18; TEMP 36.5
[2021-07-09] MEDS: Ibuprofen 600 MG Tablet PO ×4 (00:45→19:54)
[2021-07-09 02:03] VITALS: BP 138/90; PULSE 94; RESP 18
[2021-07-09] MEDS: Acetaminophen 500 MG Tablet 1000 MG PO ×3 (05:48→18:07)
--- NOTE | 2021-07-09 08:44 | PCM.PN.OB ---
Subjective Subjective Pt doing well. Pain well controlled. Ambulating and voiding without difficulty. Dung reg diet without N/V. No CP, SOB, leg pain. Lochia normal. Objective Data Objective Data Vital Signs: Vital Signs Temp Pulse Resp BP Pulse Ox 97.7 F L 94 18 138/90 H 95 07/08/21 21:16 07/09/21 02:03 07/09/21 02:03 07/09/21 02:03 07/08/21 04:50 Oxygen Delivery Method Room Air Weight: 176 lb 12.972 oz Body Mass Index (BMI) 28.7 Intake & Output: Intake and Output for Last 24 Hours 07/07/21 07/08/21 07/09/21 23:59 23:59 23:59 Intake Total 3910 / 4410 1916.67 / 1916.67 Output Total 1950 / 2350 2200 / 2200 Balance 1959 / 2059 -283.33 / -283.33 Lab / Micro Data Result Diagrams: 07/08/21 05:00 Micro: Microbiology 07/07/21 09:35 Mucosa - Nasopharyngeal SARS-CoV-2 Antigen (Rapid) - Final Physical Exam Const alert and no apparent distress General Appearance: cooperative HEENT normocephalic Resp normal respiratory effort GI soft to palpation, non-tender and non-distended Extremity normal to inspection Skin no rashes or lesions noted Assessment & Plan (1) S/P section: PLAN: POD#2 s/p section. Pt doing well. Pain well controlled. BP's WNL. Dispo: Routine post op care. (2) Gestational hypertension, third trimester:
[2021-07-09 09:00] VITALS: BP 139/99; PULSE 85; RESP 18; TEMP 36.5; O2SAT 97
[2021-07-09] MEDS: Senna/Docusate Sodium 1 Tablet PO (09:19)
[2021-07-09 14:45] VITALS: BP 130/87; PULSE 98; RESP 18; TEMP 36.7; O2SAT 97
[2021-07-09 19:46] VITALS: BP 135/87; PULSE 97; RESP 18; TEMP 37; O2SAT 96
[2021-07-10] VITALS (9 sets, daily range): BP systolic 128–154; BP diastolic 81–98; PULSE 78–91; RESP 16–18; TEMP 36.7–37.1; O2SAT 96–98
[2021-07-10] MEDS: Acetaminophen 500 MG Tablet 1000 MG PO ×4 (00:27→20:12)
[2021-07-10] MEDS: Ibuprofen 600 MG Tablet PO ×4 (01:32→20:12)
[2021-07-10] MEDS: Senna/Docusate Sodium 1 Tablet PO (09:08)
--- NOTE | 2021-07-10 10:11 | NURSING ---
frontal and occipital
--- NOTE | 2021-07-10 10:19 | PCM.PN.OB ---
Subjective Subjective Has a headache that started last night. It is slightly improved this morning. No vision changes or right upper quadrant pain. Having some incisional pain. Pain is well controlled. Ambulating and voiding without difficulty. Tolerating regular diet. No nausea or vomiting. No leg pain. Lochia normal. Objective Data Objective Data Vital Signs: Vital Signs Temp Pulse Resp BP Pulse Ox 98.7 F 85 18 142/97 H 98 07/10/21 08:50 07/10/21 08:50 07/10/21 08:50 07/10/21 08:50 07/10/21 08:50 Oxygen Delivery Method Room Air Weight: 176 lb 12.972 oz Body Mass Index (BMI) 28.7 Intake & Output: Intake and Output for Last 24 Hours 07/08/21 07/09/21 07/10/21 23:59 23:59 23:59 Intake Total 1916.67 / 1916.67 Output Total 2200 / 2200 Balance -283.33 / -283.33 Lab / Micro Data Result Diagrams: 07/08/21 05:00 Micro: Microbiology 07/07/21 09:35 Mucosa - Nasopharyngeal SARS-CoV-2 Antigen (Rapid) - Final Physical Exam Const General Appearance: comfortable HEENT normocephalic Resp normal respiratory effort GI soft to palpation, non-tender and non-distended Extremity normal to inspection and no calf tenderness Extremity Narrative: No edema, 2+ patellar reflexes bilaterally Assessment & Plan (1) S/P section: PLAN: POD#3 s/p section. BP's are trending up, no severe ranges - will restart Labetalol 100 mg BID. Pt now w/ MALDONADO this morning. Will treat MALDONADO. Discussed w/ pt to push fluids and drink caffeine this AM. Will check pre e labs. Monitor for pre e. Discussed signs and symptoms of pre e with patient, and possibility of needing mag gtt pending lab work, symptoms and BP's. Dispo: Cont care. (2) Gestational hypertension, third trimester: (3) Placental infarct affecting management of mother in third trimester:
[2021-07-10 10:53] LABS: Hematocrit 26.9 % (37-47); Hemoglobin 8.9 g/dL (12.0-15.0); Mean Corp Hgb Conc 33.1 g/dL (32-36); Mean Corpuscular Volume 93.7 fL (81-99); Mean Platelet Vol. 9.3 fl (6.2-12.0); Platelet Count 231 K/mm3 (150-450); RBC Distribution Width CV 13.3 % (11.6-14.6); RBC Distribution Width SD 45.3 fl (35.1-43.9); Red Blood Count 2.87 M/mm3 (4.2-5.4); White Blood Count 10.6 K/mm3 (4.4-11.0)
[2021-07-10 11:15] LABS: ALB/GLOB Ratio 0.6 RATIO (0.9-2.4); AST(SGOT) 34 U/L (15-37); Alanine Aminotransfer ALT/SGPT 35 U/L (13-56); Albumin, Serum 2.4 g/dL (3.2-5.0); Alkaline Phosphatase 98 U/L (45-117); Anion Gap 4 (5-15); BUN 6 mg/dL (7-18); Calcium,Total 8.8 mg/dL (8.5-10.1); Chloride 109 mmol/L (98-107); Creatinine, Serum 0.38 mg/dL (0.55-1.02); EST Glomerular Filtration Rate 213 mL/min (>60); Est Glom Filt Rate - Afr Amer 258 mL/min (>60); Estimated Creatinine Clearance 193.02 ml/min; Glucose 81 mg/dL (74-106); Potassium 3.8 mmol/L (3.5-5.1); Protein, Total 6.4 g/dL (6.4-8.2); Sodium Level 139 mmol/L (136-145)
[2021-07-10] MEDS: Labetalol 200 MG Tablet PO ×2 (11:23→23:36)
[2021-07-10] MEDS: oxyCODONE 5 MG Tablet PO (18:57)
--- NOTE | 2021-07-10 18:59 | NURSING ---
1850- called dania peter regarding pt having a headache when she sits up. will be over to assess.
--- NOTE | 2021-07-10 19:02 | NURSING ---
1900- brittani was in and talked with pt. at this point to continue to treat pt with pain medications, does not feel this is a spinal headache.
[2021-07-11] MEDS: Ibuprofen 600 MG Tablet PO ×2 (02:14→08:12)
[2021-07-11] MEDS: Acetaminophen 500 MG Tablet 1000 MG PO ×2 (02:14→08:12)
[2021-07-11 04:50] VITALS: BP 135/91; PULSE 85; RESP 16; TEMP 36.8; O2SAT 96
[2021-07-11 08:10] VITALS: BP 144/94; PULSE 83; RESP 16; TEMP 36.7; O2SAT 97
--- NOTE | 2021-07-11 08:50 | PCM.PN.BLA ---
Progress Note Pain well controlled, average lochia. No nausea or vomiting. Ambulating and tolerating regular diet. Has had a bowel movement and is urinating without difficulty. Physical Exam Narrative Bandage was removed and incision is clean dry and intact. Const alert General Appearance: cooperative GI GI Narrative: soft, moderate distention, fundus firm, appropriately tender. Abdominal bandage clean dry and intact Assessment & Plan Assessment/Plan (1) S/P section: PLAN: Postoperative day #4 status post primary section for kim breech, placental infarcts, and gestational hypertension. Patient is doing well. Blood pressures are well controlled. is breast-feeding and doing well. Discharged home with routine instructions. Pain is controlled with Tylenol.
--- NOTE | 2021-07-11 08:51 | PCM.DC.SUM ---
Providers Date of Admission: 07/07/21 Date of Discharge: 07/11/21 Primary Care Physician: TRISH Hammonds Reason For Visit: PRIMARY C SECTION Diagnosis Discharge Diagnosis (1) S/P section: Status: Acute Code(s): Z98.891 - History of uterine scar from previous surgery (2) Gestational hypertension with significant proteinuria, delivered: Status: Acute Code(s): O14.94 - Unspecified pre-eclampsia, complicating childbirth Medications at Discharge Home Medications prenat.vits,vj,iuj-iqyf-umnjd 1 tab PO QDAY 11/13/17 labetalol 200 mg PO BID #60 tab 07/11/21 Hospital Course Operations section Procedures None Summary of Care Provided Hospital Course: Lukasz is a 31-year-old nulliparous female who presented at 36 weeks gestation for primary section due to kim breech presentation, multiple placental infarcts, and gestational hypertension. Maternal- medicine recommended delivery. Primary low transverse section was performed without difficulty. There is a double layer closure of the uterus with Vicryl suture. Postoperatively, the patient did well. She had mild acute blood loss anemia which was appropriate for blood loss during the surgery. By postoperative day #4 she was ambulating, tolerating regular diet and ready for discharge. Her blood pressures are stable on labetalol 200 mg twice daily. She was discharged home on this and to follow-up in the office in 3 to 4 days or as needed. Weight / BMI Weight Weight: 80.2 kg Body Mass Index (BMI) 28.7 ABG / Lab / Microbiology Data Result Diagrams: 07/10/21 10:30 07/10/21 10:30 Laboratory: Laboratory Results - last 24 hr 07/10/21 10:30: WBC 10.6, RBC 2.87 L, Hgb 8.9 L, Hct 26.9 L, MCV 93.7, MCH 31.0, MCHC 33.1, RDW Std Deviation 45.3 H, RDW Coeff of Bella 13.3, Plt Count 231, MPV 9.3 07/10/21 10:30: Sodium 139, Potassium 3.8, Chloride 109 H, Carbon Dioxide 26.0, Anion Gap 4 L, BUN 6 L, Creatinine 0.38 L, Estim Creat Clear Calc 193.02, Est GFR (MDRD) Af Amer 258, Est GFR (MDRD) Non-Af 213, BUN/Creatinine Ratio 16.0, Glucose 81, Calcium 8.8, Total Bilirubin 0.20, AST 34, ALT 35, Alkaline Phosphatase 98, Total Protein 6.4, Albumin 2.4 L, Globulin 4.0, Albumin/Globulin Ratio 0.6 L Microbiology: Microbiology 07/07/21 09:35 Mucosa - Nasopharyngeal SARS-CoV-2 Antigen (Rapid) - Final D/C Instructions Discharge Diet: No restrictions May resume sexual activity in: 4-6 weeks Lifting Restrictions: 20 pounds Additional Activity Instructions: Nothing in the vagina for 4-6 weeks. You may return to work/school in 6 weeks. Call your doctor if your incision/area has: Continuous Slow Oozing, Sudden Increased Bleeding, Increased Pain/ Swelling, Increased Redness and Foul Smelling Discharge Call your doctor if you observe: Fever of 101 or Higher and Using more than 1 pad per hour (for 2 hours) Suture Line Care: Avoid Pulling/Pushing and Avoid Pinching/Bending Cleanse incision/area with: Keep Dressing Clean & Dry Please Follow Up With: oRnna Fajardo MD When: Call to make an appointment for an incision check in 3-4 [phone]. You will need a post check in 6 weeks. Meaningful Use Info Meaningful Use Diagnoses (Choose all that apply): None applicable Discharge Plan Admission Admit Date/Time: 07/07/21 08:05 Primary Reason for Your Visit: Attending Provider: Ronna Fajardo Primary Care Provider: Zhane Rodriguez NP Instructions Patient Instructions: After a Discharge Orders/Prescriptions Prescriptions: New labetalol 200 mg Tablet 200 mg PO BID Qty: 60 RF: 0 Continued prenat.vits,vj,yrs-nwpq-seoqf [ Vitamin] tablet 1 tab PO QDAY RF: 0 Discontinued labetalol 200 mg Tablet 100 mg PO BID RF: 0 acyclovir 400 mg Tablet 400 mg PO TID RF: 0 Referrals / Follow Up: Zhane Rodriguez NP, HEAD WAITER/WAITRESS [facility] [Primary Care Provider] - Disposition Disposition (needs filled in before D/C Order can be placed): Home, Self Care
[2021-07-11] MEDS: Labetalol 200 MG Tablet PO (09:44)
[2021-07-11] MEDS: Senna/Docusate Sodium 1 Tablet PO (09:44)
[2021-07-12 09:25] LABS: Pathology Specimen OB SEE PATHOLOGY REPORT
== END 2021-07-11 10:45 | disposition home or self-care (01) | DRG 787 ==
PROVIDERS: Obstetrics & Gynecology; Admitting Provider Obstetrics & Gynecology; PCP Nurse Practitioner; Visit Provider Obstetrics & Gynecology
PROC: 10D00Z1 Extraction of Products of Conception, Low, Open Approach (ICD-10-PCS; CPT 59514; principal; 2021-07-07 11:15)
DX: O14.94 Unspecified pre-eclampsia, complicating childbirth (principal); D62 Acute posthemorrhagic anemia; Q04.6 Congenital cerebral cysts; G81.11 Spastic hemiplegia affecting right dominant side; O99.354 Diseases of the nervous system complicating childbirth; O99.02 Anemia complicating childbirth; O69.1XX0 Labor and delivery complicated by cord around neck, with compression, not applicable or unspecified; O32.1XX0 Maternal care for breech presentation, not applicable or unspecified; O26.23 Pregnancy care for patient with recurrent pregnancy loss, third trimester; O43.813 Placental infarction, third trimester; Z3A.36 36 weeks gestation of pregnancy; Z37.0 Single live birth; Z81.8 Family history of other mental and behavioral disorders; Z82.49 Family history of ischemic heart disease and other diseases of the circulatory system; Z82.5 Family history of asthma and other chronic lower respiratory diseases; Z83.3 Family history of diabetes mellitus; Z87.891 Personal history of nicotine dependence; Z98.891 History of uterine scar from previous surgery
CPT/HCPCS: 80053; 85025; 85027; 86850; 86900; 86901; 87426; 88307; 99218; 99251; J7120; A4216; G0378; G0463; J2405

== ENCOUNTER 2024-07-23 00:40 | Emergency (ER) | payer BC, SELFPAY ==
[2024-07-23 00:41] VITALS: BP 161/101; PULSE 144; RESP 16; TEMP 37.6; O2SAT 99
--- NOTE | 2024-07-23 00:47 | RAD_ITS ---
EXAM: XR Chest 1 View INDICATION: Female, 34 years old. CP TECHNIQUE: Single AP view COMPARISON: None FINDINGS: DEVICES: None LUNGS: No confluent air space opacity. No concerning pulmonary nodule. No pleural effusion or pneumothorax. MEDIASTINUM: Cardiac and mediastinal silhouettes are within normal limits. No central pulmonary vascular congestion. . SKELETAL STRUCTURES: No acute skeletal abnormality. UPPER ABDOMEN: Unremarkable RAD/Chest 1 View (Portable) IMPRESSION: No acute cardiopulmonary disease Electronically Signed: Efrain Quiles MD at 1:28 EDT ,
--- NOTE | 2024-07-23 00:47 | EKG12_ITS ---
Test Reason : TACHYCARDIA Blood Pressure : / mmHG Vent. Rate : 134 BPM Atrial Rate : 134 BPM P-R Int : 150 ms QRS Dur : 072 ms QT Int : 276 ms P-R-T Axes : 068 037 027 degrees QTc Int : 412 ms Sinus tachycardia Cannot rule out Septal infarct , age undetermined Abnormal ECG Confirmed by Denis Dubois ([id number]), editor & co founder RAMON TERAN ([id number]) on 07/23/2024 10:12:55 AM Referred By: CONCETTA Confirmed By:Denis Dubois
--- NOTE | 2024-07-23 00:52 | EDS_ITS ---
HPI History of Present Illness Chief Complaint: Palpitations Informant: patient Onset/Context/Timing Onset: Today Activity at onset: sudden Timing: Continuous Worsened By: Nothing Relieved By: Nothing Associated Symptoms: Positive for Palpitations; Negative for Nausea, Vomiting, Diaphoresis, Dyspnea, Fever, Lightheadedness or Acid Reflux Narrative Narrative: Healthy 34-year-old female treated for hypertension with amlodipine. Said today under 1150 she woke from sleep and noticed accelerated heart rate. Denies chest pain or shortness of breath. Denies recent illness. Denies fever, vomiting or diarrhea. No melena. Does not recall ever having a specific episode like this before. No chest pain. No hemoptysis. No leg pain or swelling. No travel or surgery. No hemoptysis. 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 Gestational hypertension, third trimester Wears eyeglasses Herpes Depression Anxiety History of heartburn Non-smoker Schizencephaly Hypertension Back pain Abnormal bruising Diarrhea Fatigue Migraines Home Medications ?Medication ?Instructions ?Recorded ?Last Taken ?Type acyclovir 400 mg tablet 400 mg PO BID 07/23/24 Unknown History amlodipine 2.5 mg tablet 2.5 mg PO DAILY 07/23/24 Unknown History drospirenone 3 mg-ethinyl 1 tab PO DAILY 07/23/24 Unknown History estradiol 0.03 mg tablet sumatriptan succinate 100 mg tablet See Rx Instructions PO .COMPLEX 07/23/24 Unknown History Allergy/AdvReac Type Severity Reaction Status Date / Time No Known Allergies Allergy Verified 07/23/24 00:43 Family History Other Diabetes Hypertension Surgical History S/P section History of surgery Hx of colonoscopy Hx of dilation and curettage Social History Smoking Status: Never smoker alcohol intake: current alcohol intake frequency: a few times a month ROS ROS ED ROS Narrative Palpitations. Constitutional Constitutional ED: Denies fever(s) Eyes Eyes: Reports none ENT ENT ED: Denies ear pain Cardiovascular Cardiovascular: Reports palpitations and racing heartbeat; Denies chest pain Respiratory/Chest Respiratory/Chest: Denies cough, dyspnea or dyspnea on exertion Gastrointestinal Gastrointestinal: Denies abdominal pain, diarrhea, nausea or vomiting Genitourinary Genitourinary ED: Denies dysuria Musculoskeletal Musculoskeletal: Denies arthralgias or back pain Integumentary Denies abscess Psychiatric Psychiatric: Denies anxiety Endocrine Endocrinology: Denies cold intolerance Hematologic/Lymphatic Hematologic/Lymphatic: Denies easy bleeding Allergic/Immunologic Allergic/Immunologic ED: Denies mouth swelling EXAM Physical Exam Narrative Exam Narrative: Well-appearing 34-year-old female. Vital signs stable heart rate 1, no rooms around 136. But sinus tachycardia on the monitor. She is in no distress. Sitting upright in bed. No family present. H EENT exam unremarkable. Neck nontender no thyromegaly. No lymphadenopathy. Lungs clear to auscultation bilaterally. Heart tachycardic 136 no murmur. Chest wall ribs nontender. Abdomen soft nontender. Moving all 4 extremities. 5 out of 5 shopper insights manager strength. Dorsi plantarflexion intact. Calves are nontender without edema. Neurologically she is awake and alert no focal motor deficits. Answering questions and following commands. Const Vital Signs: 07/23/24 00:41 07/23/24 00:44 07/23/24 00:47 Temperature 99.7 F H Temperature Source Oral Pulse Rate 144 H Respiratory Rate 16 Respiratory Effort Normal Normal Respiratory Pattern Normal Normal Blood Pressure 161/101 H Blood Pressure Mean 121 Pulse Ox 99 Oxygen Delivery Method Room Air 07/23/24 00:48 07/23/24 00:58 07/23/24 01:00 Temperature Temperature Source Pulse Rate 122 H 123 H Respiratory Rate 17 20 H Respiratory Effort Respiratory Pattern Blood Pressure Blood Pressure Mean Pulse Ox Oxygen Delivery Method Room Air 07/23/24 01:15 07/23/24 01:32 Temperature Temperature Source Pulse Rate 116 H 117 H Respiratory Rate 21 H 21 H Respiratory Effort Respiratory Pattern Blood Pressure 140/102 H Blood Pressure Mean 115 Pulse Ox 98 Oxygen Delivery Method Room Air Positive well nourished and well developed; Negative for obese, cachectic, contractures or unkempt General Appearance ED: well developed; Negative for unkempt, cachectic, contractures or pallor Nutritional Appearance: Negative for cachectic or obese HEENT Reports moist mucous membranes; Denies dry mucous membranes normocephalic and atraumatic; Negative for trauma or tenderness Mouth ED: No dry mucous membranes Mouth: No dry mucous membranes Eyes PERRL and EOMs intact bilaterally General Eye ED: Negative for pale conjunctiva or scleral icterus Neck no lymphadenopathy, supple and no JVD General: Negative for tenderness or other Chest Wall inspection of chest normal and palpation of chest normal Chest: Negative for tenderness Resp normal respiratory effort and clear to auscultation bilaterally Effort and Inspection: Negative for respiratory distress Auscultation: Negative for rales, rhonchi, wheezes or diminished lung sounds Cardio regular rhythm, S1 normal heart sound, S2 normal heart sound and no murmurs; Negative for regular rate Rate: tachycardic; Negative for bradycardia Rhythm: Negative for abnormal rhythm Peripheral Pulses: pulses 2+ throughout GI normal to inspection, nondistended, normoactive bowel sounds, soft to palpation, non-tender, non-distended and no masses Palpation: Negative for mass Back/Spine no CVA tenderness and no thoracic nor lumbar tenderness General Back: Negative for CVA tenderness Cervical Spine: Negative for cervical spine tenderness Extremity normal to inspection General Extremety ED: Negative for edema, pulses abnormal or tenderness General Extremity: Negative for edema or pulses abnormal Neuro oriented x3 and CN's II-XII intact bilaterally Sensorium / Orientation: awake, alert, oriented to person, oriented to place and oriented to time; Negative for confused, lethargic, stuporous or other Motor Exam: strength 5/5 throughout Psych mental status grossly normal Appearance: Negative for unkempt Attitude: No agitated Mood & Affect: Negative for depressed, anxious or tearful Skin no rashes or lesions noted and no wounds General Skin Exam: Negative for jaundice or pallor Rashes: No rashes noted Trauma: Negative for abrasion or laceration MDM MDM MDM Narrative Medical decision making narrative: 34-year-old female with no history of cardiac disease. Presents with palpitations with sinus tachycardia. No risk factors for DVT or PE or history.. Shortening her cardiac workup. Given IV fluids. I think her heart rate will come down on its own. Repeat exam at 1:30 AM patient doing well. Current heart rate 117. She just walked back from the bathroom. Repeat exams unchanged. We went over all of her test results which are normal. She is received about half a liter normal saline. We will give her the rest IV fluids and she will be reassessed. Her father is present in the room. Most likely she should be able to be discharged home. Patient doing well at 2:06 AM. Her current heart rate is 107. She has had about 700 cc of the IV fluids in. She is comfortable being discharged home. Father was at bedside I discussed with him and her all her normal test results. History & Record Review Discussion w/independent historian: Patient Additional record(s) reviewed:: Prior inpatient record, Prior outpatient record, Prior ED visit, Prior labs and No prior records Lab Data Attestation: I reviewed the patient's lab results. Lab results narrative: CBC normal. White count of 9. H&H 13 and 38. Platelets 232. Electrolytes show a gap of 6. Normal BUN and creatinine. Glucose 126. Troponin less than 3. TSH normal at 0.88 Chest x-ray normal. Labs: Laboratory Results - last 24 hr 07/23/24 00:52 WBC 9.4 RBC 4.35 Hgb 13.0 Hct 38.0 MCV 87.4 MCH 29.9 MCHC 34.2 RDW Std Deviation 37.8 RDW Coeff of Bella 11.7 Plt Count 232 MPV 9.5 Immature Gran % (Auto) 0.400 Neut % (Auto) 77.8 H Lymph % (Auto) 9.9 L Kendall % (Auto) 9.3 Eos % (Auto) 2.1 Baso % (Auto) 0.5 Absolute Neuts (auto) 7.3 Absolute Lymphs (auto) 0.93 Nucleated RBC % 0 Sodium 137 Potassium 3.7 Chloride 105 Carbon Dioxide 26.0 Anion Gap 6 BUN 11 Creatinine 0.75 Estim Creat Clear Calc 103.78 Est GFR (MDRD) Af Amer 114 Est GFR (MDRD) Non-Af 95 BUN/Creatinine Ratio 14.7 Glucose 126 H Calcium 9.2 Troponin I High Sens < 3 L TSH 0.888 Radiography Chest X-Ray - ED: 1 View, Read by ED Physician, Heart, Lungs, Mediastinum, Bony Structures and No Acute Disease Diagnostic Testing: Clinical Impression(s) from Imaging Studies Chest X-Ray 08/28/24 00:47 IMPRESSION: No acute cardiopulmonary disease Electronically Signed: Efrain Quiles MD at 1:28 EDT , Chest x-ray, portable, single view interpreted by myself shows normal cardiac silhouette. Normal lung sarmiento. No acute abnormality. Rhythm Strip Rhythm Strip: Sinus Tach Rate: 134 Ectopy: None EKG Initial EKG: Attestation: I personally reviewed and interpreted this EKG as follows: Interpretation: No Acute Injury Pattern and Sinus Tachycardia Comments: Sinus tachycardia rate of 134. No acute signs of HI. Discharge Plan Triage Chief Complaint: Palpitations Other Complaint: General Illness ED Provider: Salvador Sky Dx/Rx/DC Orders Clinical Impression: Sinus tachycardia, Anxiety Instructions: ED Palpitations Prescriptions: No Action sumatriptan succinate 100 mg tablet See Rx Instructions PO .COMPLEX Rx Instructions: orally TAKE ONE TABLET BY MOUTH AT ONSET OF MIGRAINE. IF SYMPTOMS PERSIST, A SECOND DOSE MAY BE TAKEN IN 2 HOURS. DO NOT EXCEED 2 DOSES IN A 24 HOUR PERIOD, UNLESS OTHERWISE INSTRUCTED BY YOUR PHYSICIAN; amlodipine 2.5 mg tablet 2.5 mg PO DAILY acyclovir 400 mg tablet 400 mg PO BID drospirenone-ethinyl estradiol 3-0.03 mg tablet 1 tab PO DAILY Primary Care Provider: Sarah Webb Referrals: Pedro Shah MD [Med Staff - External Auditor] - As Needed Activity Restrictions/Additional Instructions: You have a sinus tachycardia which is a normal heart rate is just fast. Most likely secondary to anxiety. Your labs and chest x-ray were unremarkable. You have normal blood counts. No signs of a heart attack. Normal chest x-ray. Normal thyroid test. Plenty of fluids and rest. Follow-up as needed. Return if feeling worse. Print Language: Kiswahili Disposition Disposition: Home, Self Care
[2024-07-23 00:58] VITALS: PULSE 122; RESP 17
[2024-07-23] MEDS: 0.9% Normal Saline (1000mL) 1,000 ML 999 ML IV (00:59)
[2024-07-23 01:00] VITALS: PULSE 123; RESP 20
[2024-07-23 01:04] LABS: Absolute Lymphocyte Count 0.93 X10^3/uL (0.83-4.51); Absolute Neutrophil Count 7.3 X10^3/uL (2.0-7.7); Basophil# 0.05 X10^3/uL; Basophil% 0.5 % (0-1); Eosinophils% 2.1 % (0-5); Lymphocyte # 0.93 X10^3/ul (0.83-4.51); Lymphocyte % 9.9 % (19-41); Mean Corp Hgb Conc 34.2 g/dL (32-36); Mean Corpuscular Hgb 29.9 pg (27.0-32.0); Mean Corpuscular Volume 87.4 fL (81-99); Mean Platelet Vol. 9.5 fl (6.2-12.0); Monocyte# 0.87 X10^3/uL; Monocyte% 9.3 % (0-10); NRBC Flagged by Analyzer 0 % (0-5); Neutrophil # 7.29 X10^3/uL (2.7-7.7); Neutrophil % 77.8 % (47-70); Platelet Count 232 K/mm3 (150-450); RBC Distribution Width CV 11.7 % (11.6-14.6); RBC Distribution Width SD 37.8 fl (35.1-43.9); Red Blood Count 4.35 M/mm3 (4.2-5.4); White Blood Count 9.4 K/mm3 (4.4-11.0)
[2024-07-23 01:15] VITALS: BP 140/102; PULSE 116; RESP 21; O2SAT 98
[2024-07-23 01:26] LABS: Anion Gap 6 (5-15); BUN 11 mg/dL (7-18); BUN/Creat Ratio 14.7 RATIO (10-20); Calcium,Total 9.2 mg/dL (8.5-10.1); Chloride 105 mmol/L (98-107); Creatinine, Serum 0.75 mg/dL (0.55-1.02); EST Glomerular Filtration Rate 95 mL/min (>60); Est Glom Filt Rate - Afr Amer 114 mL/min (>60); Estimated Creatinine Clearance 103.78 ml/min; Glucose 126 mg/dL (74-106); Potassium 3.7 mmol/L (3.5-5.1); Sodium Level 137 mmol/L (136-145); Thyroid Stim Hormone (TSH) 0.888 uIU/mL (0.358-3.740); Troponin-I HS < 3 pg/mL (3.0-54.0)
[2024-07-23 01:32] VITALS: PULSE 117; RESP 21
[2024-07-23 02:27] VITALS: BP 142/103; PULSE 110; RESP 16; TEMP 37.3; O2SAT 100
== END 2024-07-23 02:29 | disposition home or self-care (01) ==
LOC: ED 01:45
PROVIDERS: Emergency Provider Emergency Medicine; PCP Nurse Practitioner Family; Visit Provider Emergency Medicine
DX: R00.2 Palpitations (principal); R00.0 Tachycardia, unspecified; F41.9 Anxiety disorder, unspecified; I10 Essential (primary) hypertension; Z79.899 Other long term (current) drug therapy
CPT/HCPCS: 71045; 80048; 84443; 84484; 85025; 93005; 96360; 99285; J7030; A4216

== ENCOUNTER → 2025-04-14 | Outpatient (CLI) | payer BC, SELFPAY ==
--- NOTE | 2025-04-14 16:10 | RAD_ITS ---
PROCEDURE: CHEST PA AND LATERAL 04/14/2025 REASON FOR EXAM: ANTERIOR CHEST PAIN TECHNIQUE: Frontal and lateral views of the chest. COMPARISON: None. FINDINGS: Hardware: None. Heart: The heart size is normal. Mediastinum: The mediastinal contour is unremarkable. Lungs: The lungs are clear. Bones: The bones are unremarkable. RAD/Chest PA and Lateral IMPRESSION: NO ACUTE FINDINGS. Reading Location: [id number]
[2025-04-14 16:14] LABS: Mucous, Urine 0 SEEN /hpf (<or=2+)
[2025-04-14 18:04] LABS: Absolute Neutrophil Count 6.9 X10^3/uL (2.0-7.7); Basophil# 0.04 X10^3/uL; Basophil% 0.4 % (0-1); Eosinophil# 0.13 X10^3/uL; Eosinophils% 1.3 % (0-5); Hematocrit 39.2 % (37-47); Hemoglobin 13.5 g/dL (12.0-15.0); Lymphocyte % 26.1 % (19-41); Mean Corp Hgb Conc 34.4 g/dL (32-36); Mean Corpuscular Hgb 29.9 pg (27.0-32.0); Mean Corpuscular Volume 86.9 fL (81-99); Monocyte# 0.51 X10^3/uL; Monocyte% 4.9 % (0-10); NRBC Flagged by Analyzer 0 % (0-5); Neutrophil # 6.93 X10^3/uL (2.7-7.7); Platelet Count 292 K/mm3 (150-450); RBC Distribution Width CV 12.5 % (11.6-14.6); RBC Distribution Width SD 39.8 fl (35.1-43.9); Red Blood Count 4.51 M/mm3 (4.2-5.4); White Blood Count 10.3 K/mm3 (4.4-11.0)
[2025-04-14 18:09] LABS: Color, Urine Straw (Yellow); Glucose, Dipstick Normal (Normal); Ketone-Dipstick Negative (Negative); Leukocyte Esterase-Dipstick Negative /ul (Negative); Nitrite-Dipstick Negative (Negative); Occult Blood-Urine Negative /ul (Negative); Protein-Dipstick 15 mg/dl (Negative); Specific Gravity, Urine 1.015 (1.002-1.030); Urine Bilirubin Dipstick Negative (Negative); Urine Clarity Clear (Clear); Urine Urobilinogen Normal (Normal); Urine pH 6.5 (5.0 - 8.0)
[2025-04-14 18:19] LABS: Bacteria 1+ /hpf (None Seen); Red Blood Cells-Urine 0-5 SEEN /hpf (0-5); Squamous Epithelial Cells - UA 5-10 SEEN /hpf (5-10); White Blood Cells 0-5 SEEN /hpf (0-5)
[2025-04-14 18:23] LABS: ALB/GLOB Ratio 1.1 RATIO (0.9-2.4); AST(SGOT) 18 U/L (<=31); Alanine Aminotransfer ALT/SGPT 20 U/L (<=34); Albumin, Serum 4.4 g/dL (3.5-5.0); Alkaline Phosphatase 60 U/L (35-104); Anion Gap 12 (5-15); BUN 16 mg/dL (4-19); BUN/Creat Ratio 25.1 RATIO (10-20); CRP 3.18 mg/L (0.0-3.0); Calcium,Total 9.8 mg/dL (7.6-11.0); Carbon Dioxide 21.9 mmol/L (21.0-32.0); Chloride 105 mmol/L (98-108); Creatinine, Serum 0.64 mg/dL (0.70-1.20); EST Glomerular Filtration Rate 119 (>60); Glucose 117 mg/dL (70-99); Potassium 3.7 mmol/L (3.3-5.1); Protein, Total 8.3 g/dL (5.9-8.4); Sodium Level 139 mmol/L (133-145); Total Bilirubin 0.17 mg/dL (0.00-1.30); Troponin T High Sensitivity < 6 ng/L (<=14)
[2025-04-14 19:01] LABS: D-Dimer Quantitative (DVT/PE) 0.27 FEU/ug/m (0.27-0.49)
[2025-04-14 19:34] LABS: Erythrocyte Sedimentation Rate 10 mm/hr (0-30)
== END | disposition home or self-care (01) ==
LOC: MTLAB 16:08
PROVIDERS: PCP Nurse Practitioner Family; Referring Provider Nurse Practitioner Family; Visit Provider Nurse Practitioner Family
DX: R07.9 Chest pain, unspecified (principal)
CPT/HCPCS: 36415; 71046; 80053; 81001; 84443; 84484; 85025; 85379; 85652; 86140

== ENCOUNTER → 2025-06-10 | Outpatient (CLI) | payer BC, SELFPAY ==
--- NOTE | 2025-06-10 12:42 | ECHOD_ITS ---
Reason For Study Reason For Study: CHEST PAIN Procedure This was a 2D Doppler, Color Flow transthoracic echocardiogram. Exam performed in department. Left Ventricle Normal size and thickness. The LV ejection fraction is 65 %. Normal diastololic function. Right Ventricle Normal right ventricle. Atria The left and right atria are normal. Mitral Valve Mild (1+) mitral valve insufficiency. Tricuspid Valve Trivial tricuspid valve insufficiency. Normal pulmonary artery pressure. Aortic Valve Trisinus/trileaflet aortic valve. Pulmonic Valve The pulmonic valve is not well visualized. Trivial pulmonic valve insufficiency. Great Vessels Normal sized aortic root. Pericardium/Pleural No pericardial effusion. MMode/2D Measurements & Calculations LVIDd: 4.6 cm IVSd: 0.77 cm LVOT diam: 2.0 cm LVIDs: 3.1 cm LVPWd: 0.95 cm LVOT area: 3.2 cm2 RVDd: 3.2 cm FS: 32.6 % asc Aorta Diam: 2.9 cm LAV(MOD-bp): 26.7 ml LVAd ap4: 21.1 cm2 LAV(MOD-bp) Indexed: 15.2 ml/m2 LVLd ap4: 7.8 cm LAV(MOD-sp2): 27.7 ml EDV(MOD-sp4): 49.0 ml LAV(MOD-sp4): 24.7 ml EDV(sp4-el): 48.4 ml LVAs ap4: 11.1 cm2 LVLs ap4: 6.4 cm ESV(MOD-sp4): 17.4 ml ESV(sp4-el): 16.1 ml EF(MOD-sp4): 64.5 % EF(sp4-el): 66.7 % LVAd ap2: 22.7 cm2 SV(MOD-sp4): 31.6 ml SV(MOD-sp2): 38.8 ml LVLd ap2: 7.3 cm SI(MOD-sp4): 18.0 ml/m2 SI(MOD-sp2): 22.1 ml/m2 EDV(MOD-sp2): 59.9 ml EDV(sp2-el): 59.4 ml LVAs ap2: 12.2 cm2 LVLs ap2: 5.9 cm ESV(MOD-sp2): 21.1 ml ESV(sp2-el): 21.1 ml EF(MOD-sp2): 64.7 % SV(sp4-el): 32.3 ml Ao sinus diam: 3.[address] Junction: 2.5 cm LA dimension(2D): 3.2 cm LA A4 area: 12.0 cm2 RA A4 area: 10.5 cm2 TAPSE: 2.2 cm Time Measurements MV dec time: 0.13 sec Doppler Measurements & Calculations MV E max rodrigo: 86.8 cm/sec Lat Peak E' Rodrigo: 18.2 cm/sec Med Peak E' Rodrigo: 12.0 cm/sec MV A max rodrigo: 72.4 cm/sec E/E' lat: 4.8 E/E' med: 7.2 MV E/A: 1.2 MV dec slope: 683.8 cm/sec2 Ao V2 max: 131.0 cm/sec LV V1 max: 115.3 cm/sec Ao max P.9 mmHg LV V1 max P.3 mmHg Ao V2 mean: 92.2 cm/sec LV V1 mean P.2 mmHg Ao mean P.8 mmHg LV V1 mean: 84.0 cm/sec Ao V2 VTI: 28.2 cm LV V1 VTI: 24.9 cm AV (velocity ratio): 0.89 FLAKO(I,D): 2.8 cm2 FLAKO(V,D): 2.8 cm2 SV(LVOT): 79.9 ml PA V2 max: 94.7 cm/sec TR max rodrigo: 236.7 cm/sec TR max P.4 mmHg ECHO/Echo Complete Interpretation Summary The LV ejection fraction is 65 %. Mild (1+) mitral valve insufficiency. Ordering Physician: Sarah Webb Referring Physician: Sarah Webb Performed By: Kerry Mcgowan RDCS
--- NOTE | 2025-06-10 14:51 | STRESSREP ---
Stress Test Report Date: 06/10/2025 Procedure: Exercise tolerance test Indications: Chest pain Consent: Per the patient Procedure: The patient exercised on a David protocol for 7 minutes achieving a peak heart rate of 173 bpm (93% predicted maximal heart rate) with a peak blood pressure 138/80 mmHg and a peak MET capacity of approximately 10.1 MET's. The baseline ECG demonstrated sinus rhythm. The peak exercise ECG showed sinus tachycardia. No ischemic changes noted either during exercise or in recovery. Occasional PVCs noted with exercise. The functional capacity was considered good. The patient had no complaints of chest discomfort during exercise or recovery. The examination was discontinued secondary to target heart rate being achieved and fatigue. Impression: 1. Technically adequate (percent predicted maximal heart rate greater than 85%) exercise tolerance test 2. Peak exercise ECG with no ischemic changes. Good chronotropic response to exercise 3. Occasional PVCs with exercise This note was generated with [employer]ation software. It may contain incorrect words, spelling, and punctuation that were not noted in checking the note before signing.
== END | disposition home or self-care (01) ==
PROVIDERS: PCP Nurse Practitioner Family; Referring Provider Nurse Practitioner Family; Visit Provider Nurse Practitioner Family
DX: R07.9 Chest pain, unspecified (principal)
CPT/HCPCS: 93017; 93306

== ENCOUNTER 2025-06-25 13:15 | Emergency (ER) | payer BC, SELFPAY ==
[2025-06-25 13:15] VITALS: BP 143/104; PULSE 116; RESP 14; TEMP 35.6; O2SAT 98; BMI 26.9
--- NOTE | 2025-06-25 14:05 | EKG12_ITS ---
Test Reason : CP Blood Pressure : */* mmHG Vent. Rate : 113 BPM Atrial Rate : 113 BPM P-R Int : 148 ms QRS Dur : 72 ms QT Int : 320 ms P-R-T Axes : 78 57 53 degrees QTcB Int : 438 ms Sinus tachycardia Otherwise normal ECG Confirmed by PARTHA LIM, POOJA ([id number]), commercial production editor ALEXANDRU PRIDE ([id number]) on 06/29/2025 8:22:19 AM Referred By: AR/SINDI Confirmed By: POOJA CHAVIS MD
--- NOTE | 2025-06-25 14:05 | RAD_ITS ---
PROCEDURE: CHEST PA AND LATERAL 06/25/2025 REASON FOR EXAM: CHEST PAIN TECHNIQUE: CHEST PA AND LATERAL COMPARISON: 04/14/2025 FINDINGS: LUNGS AND PLEURA: The lungs are clear. No pleural effusion or pneumothorax. HEART AND MEDIASTINUM: The heart size and mediastinal contours are normal. BONES: No acute osseous abnormality. RAD/Chest PA and Lateral IMPRESSION: NEGATIVE CHEST Reading Location: [id number]
[2025-06-25 14:20] LABS: Hematocrit 40.6 % (37-47); Hemoglobin 14.2 g/dL (12.0-15.0); Immature Granulocytes Count 0.050 X10^3/uL (0.0-0.0); Mean Corp Hgb Conc 35.0 g/dL (32-36); Mean Corpuscular Volume 84.8 fL (81-99); Mean Platelet Vol. 9.2 fl (6.2-12.0); NRBC Flagged by Analyzer 0 % (0-5); Platelet Count 305 K/mm3 (150-450); RBC Distribution Width CV 11.5 % (11.6-14.6); RBC Distribution Width SD 35.5 fl (35.1-43.9); Red Blood Count 4.79 M/mm3 (4.2-5.4); White Blood Count 12.8 K/mm3 (4.4-11.0)
--- NOTE | 2025-06-25 14:26 | EDS_ITS ---
HPI History of Present Illness Chief Complaint: Chest Pain Narrative Narrative: Chief complaint and HPI: Chest pain. 35-year-old female with past medical history of anxiety, depression HTN presents for evaluation of chest pain. Patient states that she is having episodic chest pain for a while. On chart review she had a stress test on 06/10 that was unremarkable. She had an echocardiogram at the same time that showed EF of 65% with mild atrial valve insufficiency. Patient states she has been following with her primary care physician and cardiology. Patient states yesterday she developed recurrent chest pain. Episodic. Sometimes dull other sharp. States she called her PCP mumtaz rios was concerned it may be secondary to anxiety. States it did not improve despite doubling her anxiety medication which is why she presents the emergency department. She denies any fever, chills, URI symptoms, shortness of breath, nausea, vomiting. Review of systems: See HPI Medications: As listed on the chart Allergies: As listed on the chart PFSH: Per chart Vital signs: As listed on the chart. Reviewed. 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 Gestational hypertension, third trimester Wears eyeglasses Herpes Depression Anxiety History of heartburn Non-smoker Schizencephaly Hypertension Back pain Abnormal bruising Diarrhea Fatigue Migraines Home Medications ?Medication ?Instructions ?Recorded ?Last Taken ?Type acyclovir 400 mg tablet 400 mg PO BID 07/23/24 Unkno wn History amlodipine 2.5 mg tablet 2.5 mg PO DAILY 07/23/24 Unk nown History drospirenone 3 mg-ethinyl 1 tab PO DAILY 07/23/24 Unkn own History estradiol 0.03 mg tablet sumatriptan succinate 100 mg tablet See Rx Instruction s PO .COMPLEX 07/23/24 Unknown History hydralazine 25 mg tablet 25 mg PO TID PRN PRN blood p ressure 06/25/25 Unknown History Allergy/AdvReac Type Severity Reaction Status Date / Time No Known Allergies Allergy Verified 06/25/25 13:16 Family History Other Diabetes Hypertension Surgical History S/P section History of surgery Hx of colonoscopy Hx of dilation and curettage Social History Smoking Status: Never smoker alcohol intake: current alcohol intake frequency: a few times a month EXAM Physical Exam Const Vital Signs: 06/25/25 13:15 06/25/25 15:29 Temperature 96.1 F L Temperature Source Temporal Pulse Rate 116 H 97 Respiratory Rate 14 16 Blood Pressure 143/104 H 133/96 H Blood Pressure Mean 117 108 Pulse Ox 98 95 Oxygen Delivery Method Room Air MDM MDM MDM Narrative Medical decision making narrative: 35-year-old female with past medical history of anxiety, depression HTN presents for evaluation of chest pain. Patient states that she is having episodic chest pain for a while. On chart review she had a stress test on 06/10 that was unremarkable. She had an echocardiogram at the same time that showed EF of 65% with mild atrial valve insufficiency. Patient states she has been following with her primary care physician and cardiology. Patient states yesterday she developed recurrent chest pain. Episodic. Sometimes dull other sharp. On presentation, patient no acute distress but anxious. She is tachycardic. Differential diagnosis includes but is not limited to anxiety reaction, electrolyte abnormality, thyroid disease, suspect less likely ACS given her unremarkable cardiac workup as well as less likely PE. Aspirin ordered for pain. Patient was offered anxiety medicine but declined. Cardiac workup ordered. EKG and chest x-ray reviewed, see below. CBC with mild leukocytosis of 12.8, no anemia or platelet dysfunction. D-dimer unremarkable. BMP unremarkable. TSH unremarkable. Troponin unremarkable. On reevaluation, patient not having chest pain. Her tachycardia has improved. Low suspicion for ACS especially since patient just had unremarkable stress test. Low heart score. Patient was educated to follow-up with her primary care physician. She states she has an appointment tomorrow. Patient stable to discharge home. EKG: Interpreted by me/EM physician: EKG shows sinus tachycardia without any acute ischemic changes. Heart rate 113 Diagnostic: Interpreted by me/EM physician: Chest x-ray without pneumonia, effusion, cardiomegaly, pneumothorax. Radiology in agreement. Impression: 1. Atypical chest pain 2. Possible anxiety reaction Lab Data Labs: Laboratory Results - last 24 hr 06/25/25 14:13 WBC 12.8 H RBC 4.79 Hgb 14.2 Hct 40.6 MCV 84.8 MCH 29.6 MCHC 35.0 RDW Std Deviation 35.5 RDW Coeff of Bella 11.5 L Plt Count 305 MPV 9.2 Immature Gran % (Auto) 0.400 Neut % (Auto) 72.5 H Lymph % (Auto) 21.5 Davie % (Auto) 4.2 Eos % (Auto) 1.0 Baso % (Auto) 0.4 Absolute Neuts (auto) 9.3 H Absolute Lymphs (auto) 2.75 Nucleated RBC % 0 D-Dimer Quant (PE/DVT) < 0.27 L Sodium 135 Potassium 3.8 Chloride 102 Carbon Dioxide 20.2 L Anion Gap 14 BUN 19 Creatinine 0.68 L Estim Creat Clear Calc 111.82 Est GFR (MDRD) Non-Af 116 BUN/Creatinine Ratio 27.8 H Glucose 104 H Calcium 9.5 Troponin T High Sens < 6 TSH 1.290 Radiography Diagnostic Testing: Clinical Impression(s) from Imaging Studies Chest X-Ray 06/25/25 14:05 IMPRESSION: NEGATIVE CHEST Reading Location: [facility] Discharge Plan Triage Chief Complaint: Chest Pain ED Provider: Yassine Epperson Dx/Rx/DC Orders Instructions: Chest Pain [facility] Prescriptions: No Action sumatriptan succinate 100 mg tablet See Rx Instructions PO .COMPLEX Rx Instructions: orally TAKE ONE TABLET BY MOUTH AT ONSET OF MIGRAINE. IF SYMPTOMS PERSIST, A SECOND DOSE MAY BE TAKEN IN 2 HOURS. DO NOT EXCEED 2 DOSES IN A 24 HOUR PERIOD, UNLESS OTHERWISE INSTRUCTED BY YOUR PHYSICIAN; amlodipine 2.5 mg tablet 2.5 mg PO DAILY acyclovir 400 mg tablet 400 mg PO BID drospirenone-ethinyl estradiol 3-0.03 mg tablet 1 tab PO DAILY hydralazine 25 mg tablet 25 mg PO TID PRN PRN (Reason: blood pressure) Primary Care Provider: Sarah Webb Referrals: Sarah Webb, [facility] [Primary Care Provider] - 3-5 Days Activity Restrictions/Additional Instructions: Keep your appointment with your primary care physician. Return back to the ED if symptoms change or worsen. At this point in time we will clear indication for your chest pain. Print Language: Arabic Disposition Disposition: Home, Self Care
[2025-06-25 14:32] LABS: D-Dimer Quantitative (DVT/PE) < 0.27 FEU/ug/m (0.27-0.49)
[2025-06-25 15:14] LABS: Anion Gap 14 (5-15); BUN 19 mg/dL (4-19); BUN/Creat Ratio 27.8 RATIO (10-20); Calcium,Total 9.5 mg/dL (7.6-11.0); Carbon Dioxide 20.2 mmol/L (21.0-32.0); Chloride 102 mmol/L (98-108); Estimated Creatinine Clearance 111.82 ml/min (50-250); Glucose 104 mg/dL (70-99); Potassium 3.8 mmol/L (3.3-5.1); Troponin T High Sensitivity < 6 ng/L (<=14)
[2025-06-25 15:29] VITALS: BP 133/96; PULSE 97; RESP 16; O2SAT 95
[2025-06-25 16:06] VITALS: BP 133/96; PULSE 97; RESP 16; TEMP 35.6; O2SAT 95
== END 2025-06-25 16:07 | disposition home or self-care (01) ==
PROVIDERS: Emergency Provider Surgery; PCP Nurse Practitioner Family; Visit Provider Surgery
DX: R07.9 Chest pain, unspecified (principal); I10 Essential (primary) hypertension; Z79.899 Other long term (current) drug therapy
CPT/HCPCS: 71046; 80048; 84443; 84484; 85025; 85379; 93005; 99283

== ENCOUNTER 2025-10-06 15:19 | Emergency (ER) | payer BC, SELFPAY ==
[2025-10-06 15:20] VITALS: BP 124/78; PULSE 83; RESP 16; TEMP 36.6; O2SAT 100; BMI 27.0
--- NOTE | 2025-10-06 15:30 | RAD_ITS ---
PROCEDURE: HAND MIN 3 VIEWS 10/06/2025 REASON FOR EXAM: FALL TECHNIQUE: Procedure Code: [id number] Modality: DX Procedure: HAND MIN 3 VIEWS Laterality: Right COMPARISON: None. FINDINGS: BONES: Fracture in the 5th proximal phalanx base with possible intra-articular extension. Significant dorsal angulation of the distal fracture fragment. JOINTS: No dislocation. The joint spaces are preserved. SOFT TISSUES: Mild swelling of the 5th finger. RAD/Hand Min 3 Views IMPRESSION: Acute angulated 5th proximal phalanx base fracture. Reading Location: [id number]
--- NOTE | 2025-10-06 16:56 | EX.ED.GENINJ ---
HPI History of Present Illness Chief Complaint: Fall Detail of Chief Complaint: Fall with injury to right hand Informant: patient Narrative Narrative: Patient presents to the emergency department after a fall this afternoon. Patient states that she had just gotten her nails done and was walking on the sidewalk when she fell. Patient injured her right small finger. She did hit her face on the ground but no loss of consciousness. Denies neck pain or chest pain or abdominal pain. She did vomit once on the way to the hospital because of pain she believes. Patient is left-hand dominant. Unsure of her last tetanus. [facility] Medical History (Updated 10/06/25 @ 17:[address] 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 Gestational hypertension, third trimester Wears eyeglasses Herpes Depression Anxiety History of heartburn Non-smoker Schizencephaly Hypertension Back pain Abnormal bruising Diarrhea Fatigue Migraines Home Medications ?Medication ?Instructions ?Recorded ?Last Taken ?Type acyclovir 400 mg tablet 400 mg PO BID 07/23/24 Unknown History amlodipine 2.5 mg tablet 2.5 mg PO DAILY 07/23/24 Unknown History drospirenone 3 mg-ethinyl 1 tab PO DAILY 07/23/24 Unknown History estradiol 0.03 mg tablet sumatriptan succinate 100 mg tablet See Rx Instructions PO .COMPLEX 07/23/24 Unknown History hydralazine 25 mg tablet 25 mg PO TID PRN PRN blood pressure 06/25/25 Unknown History hydrocodone-acetaminophen 5-325mg 1 tab PO Q4H PRN PRN Pain 2 days 10/06/25 Unknown Rx 5mg-325mg #14 TABLETS Allergy/AdvReac Type Severity Reaction Status Date / Time No Known Allergies Allergy Verified 10/06/25 15:23 Family History Other Diabetes Hypertension Surgical History S/P section History of surgery Hx of colonoscopy Hx of dilation and curettage Social History Smoking Status: Never smoker alcohol intake: current alcohol intake frequency: a few times a month ROS ROS ED Review of Systems ROS Unobtainable: other Constitutional Constitutional ED: Reports lethargy; Denies chills, fever(s), sweats or weight loss Eyes Eyes: Denies blurry vision, change in vision or diplopia ENT ENT ED: Denies rhinorrhea or sore throat Cardiovascular Cardiovascular: Denies chest pain, orthopnea or racing heartbeat Respiratory/Chest Respiratory/Chest: Denies cough, dyspnea, dyspnea on exertion, orthopnea or sputum Gastrointestinal Gastrointestinal: Denies abdominal pain, diarrhea, nausea or vomiting Genitourinary Genitourinary ED: Denies dysuria, hematuria or urinary frequency Musculoskeletal Musculoskeletal: Reports other Details: Injury right small finger ; Denies arthralgias, back pain, myalgias or neck pain Integumentary Reports Abrasions; Denies abscess or rash Neurologic Neurologic: Denies headache(s) or weakness Psychiatric Psychiatric: Denies anxiety, depression or suicidal thoughts Endocrine Endocrinology: Denies polydipsia, polyphagia or polyuria Hematologic/Lymphatic Hematologic/Lymphatic: Denies easy bleeding, easy bruising or lymphadenopathy Allergic/Immunologic Allergic/Immunologic ED: Denies mouth swelling, tongue swelling or urticaria EXAM Physical Exam Const Vital Signs: 10/06/25 15:20 Temperature 98 F Temperature Source Oral Pulse Rate 83 Respiratory Rate 16 Blood Pressure 124/78 H Blood Pressure Mean 93 Pulse Ox 100 Positive well nourished and well developed General Appearance ED: well developed and NAD HEENT Reports TM's clear and moist mucous membranes HEENT Narrative: Superficial abrasion to nasal bridge without bony tenderness on exam. No dental trauma noted. She has a superficial abrasion to the right chin. No malocclusion on exam. normocephalic and atraumatic; Negative for trauma or tenderness Tympanic Membrane ED: Yes TM's clear Eyes PERRL and EOMs intact bilaterally General Eye ED: Negative for pale conjunctiva or scleral icterus Neck no lymphadenopathy, supple and no JVD General: Negative for tenderness Chest Wall inspection of chest normal and palpation of chest normal Chest: Negative for tenderness Resp normal respiratory effort and clear to auscultation bilaterally Effort and Inspection: Negative for respiratory distress or pain with movement Auscultation: Negative for rhonchi, wheezes or diminished lung sounds Cardio regular rate, regular rhythm, S1 normal heart sound, S2 normal heart sound and no murmurs Peripheral Pulses: pulses 2+ throughout GI normal to inspection, nondistended, normoactive bowel sounds, soft to palpation, non-tender, non-distended and no masses Back/Spine no CVA tenderness and no thoracic nor lumbar tenderness Extremity normal to inspection Extremity Narrative: Right hand-patient has obvious deformity to the right small finger. Pain to base of proximal phalanx. Neurovascularly intact distally. No tenderness about the wrist. General Extremety ED: Negative for edema General Extremity: Negative for edema Neuro oriented x3, CN's II-XII intact bilaterally, no sensory deficits noted and gait normal Sensorium / Orientation: awake, alert, oriented to person, oriented to place and oriented to time Motor Exam: strength 5/5 throughout and strength abnormal Psych mental status grossly normal Skin no rashes or lesions noted and no wounds MDM MDM MDM Narrative Medical decision making narrative: Patient presents with injury to the right hand. She has some superficial abrasions to her face. X-rays of the hand showed a fracture at the base of the proximal phalanx of the small finger. She received a tetanus booster. I offered to perform a local block versus attempting to reduce without any anesthesia. She opted to have reduction done without any type of anesthesia and just wanted to get it done. I was able to apply some gentle traction and obtain good reduction and patient was placed in a AP splint and tiana tape the ring finger to the small finger as well. Case was discussed with orthopedic surgeon on-call Dr. Mckeon who was able to evaluate the films and is satisfied with the reduction and will follow-up patient in the office. I will write her a prescription for [place] for pain. Radiography Diagnostic Testing: Clinical Impression(s) from Imaging Studies Hand X-Ray 10/06/25 15:30 IMPRESSION: Acute angulated 5th proximal phalanx base fracture. Reading Location: [facility] Three-view x-rays of the right hand obtained interpreted by myself as fracture of the base of the proximal phalanx of the small finger. Radiology agreement. Postreduction x-rays obtained interpreted by myself is good reduction of proximal phalanx of right small finger. Discharge Plan Triage Chief Complaint: Fall ED Provider: Sina Hamilton Dx/Rx/DC Orders Clinical Impression: Finger fracture, right, Abrasion Instructions: ED Abrasion, ED Mechanical Fall, ED Fracture, Finger, Closed Prescriptions: New hydrocodone-acetaminophen 5-325 mg tablet 1 tab PO Q4H PRN PRN (Reason: Pain) 2 Days Qty: 14 0RF No Action sumatriptan succinate 100 mg tablet See Rx Instructions PO .COMPLEX Rx Instructions: orally TAKE ONE TABLET BY MOUTH AT ONSET OF MIGRAINE. IF SYMPTOMS PERSIST, A SECOND DOSE MAY BE TAKEN IN 2 HOURS. DO NOT EXCEED 2 DOSES IN A 24 HOUR PERIOD, UNLESS OTHERWISE INSTRUCTED BY YOUR PHYSICIAN; amlodipine 2.5 mg tablet 2.5 mg PO DAILY acyclovir 400 mg tablet 400 mg PO BID drospirenone-ethinyl estradiol 3-0.03 mg tablet 1 tab PO DAILY hydralazine 25 mg tablet 25 mg PO TID PRN PRN (Reason: blood pressure) Primary Care Provider: Sarah Webb Referrals: Hakeem cMkeon DO [Med Staff - Active Staff, Orthopedics] - 10/09/25 Sarah Webb, MED SURG NURSE-C [Primary Care Provider, Internal Medicine] Print Language: [place] Disposition Disposition: Home, Self Care
--- NOTE | 2025-10-06 17:04 | RAD_ITS ---
PROCEDURE: HAND MIN 3 VIEWS 10/06/2025 REASON FOR EXAM: POST REDUCTION TECHNIQUE: Procedure Code: [id number] Modality: DX Procedure: HAND MIN 3 VIEWS Laterality: Right COMPARISON: 10/06/2025 at 15:47 FINDINGS: BONES: There is now anatomic alignment of the intra-articular 5th proximal phalanx base fracture. JOINTS: No dislocation. The joint spaces are preserved. SOFT TISSUES: Swelling of the 5th finger. RAD/Hand Min 3 Views IMPRESSION: Acute 5th proximal phalanx base fracture, now in anatomic alignment. Reading Location: [id number]
[2025-10-06 17:37] VITALS: BP 124/72; PULSE 70; RESP 18; TEMP 36.8; O2SAT 100
== END 2025-10-06 17:43 | disposition home or self-care (01) ==
PROVIDERS: Emergency Provider Emergency Medicine; PCP Nurse Practitioner Family; Visit Provider Emergency Medicine
DX: S62.619A Displaced fracture of proximal phalanx of unspecified finger, initial encounter for closed fracture (principal); S60.419A Abrasion of unspecified finger, initial encounter; R11.10 Vomiting, unspecified; S00.81XA Abrasion of other part of head, initial encounter; I10 Essential (primary) hypertension; Z23 Encounter for immunization; W01.10XA Fall on same level from slipping, tripping and stumbling with subsequent striking against unspecified object, initial encounter
CPT/HCPCS: 26725; 73130; 90471; 90715; 99283